=== PATIENT | female | born 1955 | race Caucasian/White ===

== ENCOUNTER → 2019-12-02 14:54 | Outpatient (BNVA) | payer MEDICARE, MEDICAID, SELFPAY | PROVIDERS: Family Provider Nurse Practitioner Family; PCP Family Medicine; Visit Provider Nurse Practitioner Family | DX: M79.7 Fibromyalgia (principal); R53.83 Other fatigue | CPT/HCPCS: 82306; 82607 ==

== ENCOUNTER 2020-03-31 12:04 | Outpatient (CLI) | payer MEDICARE, MEDICAID, SELFPAY ==
[2020-03-31 12:57] LABS: Basophils # 0.1 10^3/uL (0.0-0.1); Basophils % 0.8 %; Eosinophils # 0.2 10^3/uL (0.0-0.8); Eosinophils % 2.3 %; Hemoglobin 12.6 g/dL (11.5-15.3); Lymphocytes % 25.7 %; Mean Corpuscular HGB Conc 31.5 g/dL (30.0-36.0); Mean Corpuscular Volume 88.9 fL (81-99); Mean Platelet Volume 10.3 fL (7.4-10.4); Monocytes # 0.5 10^3/uL (0.2-0.9); Monocytes % 6.8 %; Neutrophils # 4.9 10^3/uL (1.8-7.7); Neutrophils % 64.1 %; Nucleated Red Blood Cells % 0 %; Platelet Count 445 10^3/cmm (130-400); Red Cell Distribution Width 15.2 % (12.1-15.1); White Blood Count 7.7 10^3/uL (4.0-10.0)
[2020-03-31 13:19] LABS: Hepatitis C Virus Antibody Non-Reactive (Nonreactive)
[2020-03-31 13:24] LABS: Alanine Aminotransferase 26 U/L (0-33); Albumin Level 4.7 g/dL (3.5-5.2); Alkaline Phosphatase 98 IU/L (35-105); Aspartate Amino Transferase 30 U/L (0-32); Blood Urea Nitrogen 22 mg/dL (8-23); Calcium 9.6 mg/dL (8.5-10.5); Carbon Dioxide 26 mmol/L (22-29); Chloride 101 mmol/L (98-107); Chol HDL Ratio 3.19 mg/dL (0.0-4.40); Cholesterol 166 mg/dL (0-200); Globulin 2.4 g/dL (1.3-4.6); Glomerular Filtration Rate 45.4 mL/min (90-130); Glucose 109 mg/dL (65-115); HDL Cholesterol 52 mg/dL (60-100); LDL Cholesterol Calculated 75 mg/dL (50-129); LDL HDL Ratio 1.44 RATIO (0.00-3.22); Osmolality Calculated 289 mOsm/kg (285-295); Sodium 141 mmol/L (136-145); Thyroid Stimulating Hormone 2.63 uIU/mL (0.27-4.20); Total Bilirubin 0.5 mg/dL (0.15-1.2); Total Protein 7.1 g/dL (6.6-8.7); Triglycerides 193 mg/dL (0-150)
[2020-03-31 13:29] LABS: Hepatitis B Core AB, Total Non-Reactive (Nonreactive); Hepatitis B Surface Antigen Non-Reactive (Nonreactive)
[2020-03-31 13:40] LABS: Glomerular Filtration Rate 41.4 mL/min (90-130)
[2020-03-31 13:55] LABS: Erythrocyte Sedimentation Rate 10 mm/hr (0-15)
[2020-03-31 14:37] LABS: C Reactive Protein 1.3 mg/L (0.0-4.9)
[2020-04-02 15:34] LABS: Quantiferon Mitogen 1.01 IU/mL; Quantiferon Nil 0.03 IU/mL; Quantiferon Plus TB1 0.03 IU/mL; Quantiferon TB Gold NEGATIVE (NEGATIVE)
== END 2020-03-31 12:05 | disposition home or self-care (01) ==
LOC: LAB 12:14
PROVIDERS: PCP Nurse Practitioner Family; Visit Provider Internal Medicine Rheumatology
DX: Z79.899 Other long term (current) drug therapy (principal); M19.90 Unspecified osteoarthritis, unspecified site
CPT/HCPCS: 36415; 80053; 80061; 82248; 82565; 84443; 85025; 85651; 86140; 86480; 86704; 86803; 87340

== ENCOUNTER 2020-04-06 13:06 | Outpatient (CLI) | payer MEDICARE, MEDICAID, SELFPAY ==
--- NOTE | 2020-04-06 | MR_ITS ---
WS: [id number] MRI LEFT KNEE NONCONTRAST TECHNIQUE: Axial PD, coronal PD fat sat, coronal PD, sagittal PD, and sagittal PD fat-sat images obta ined. CLINICAL INFORMATION: LT KNEE PAIN COMPARISON: None. FINDINGS: Distal quadriceps and patella tendons are intact. Small suprapatellar effusion. Anterior and posterio r cruciate ligaments are intact. Lateral meniscus is normal. Chronic appearing intrasubstance signal abnormality involving the posterior horn medial meniscus. Horizontal tear involving the posterior hor n medial meniscus. Moderate chondromalacia patella. No subchondral edema. Mild edema in the popliteal fossa. Small amoun t of fluid along the popliteal fossa. Fluid extends along the medial head of the gastrocnemius and se mimembranosus/semitendinosus. Mild to moderate chondromalacia involving the medial and lateral joint compartments. No subchondral e gennaro. MR/MR knee LT wo con* [id number] IMPRESSION: 1. Anterior and posterior cruciate ligaments are intact. 2. Small horizontal tear involving the posterior horn medial meniscus. 3. Moderate chondromalacia involving the medial and lateral joint compartments . 4. Small suprapatellar effusion. 5. Moderate chondromalacia patella. 6. Small amount of fluid and edema in the popliteal fossa along the medial hea d of the gastrocnemius and semimembranosus/semitendinosus.
== END 2020-04-06 13:07 | disposition home or self-care (01) ==
LOC: RADSHAW 13:14
PROVIDERS: PCP Nurse Practitioner Family; Visit Provider Nurse Practitioner Family
DX: S83.242A Other tear of medial meniscus, current injury, left knee, initial encounter (principal); X58.XXXA Exposure to other specified factors, initial encounter; M22.42 Chondromalacia patellae, left knee; M25.462 Effusion, left knee
CPT/HCPCS: 73721

== ENCOUNTER → 2020-04-07 15:32 | Outpatient (BNVA) | payer MEDICARE, MEDICAID, SELFPAY | PROVIDERS: PCP Nurse Practitioner Family; Visit Provider Internal Medicine Rheumatology | DX: M06.09 Rheumatoid arthritis without rheumatoid factor, multiple sites (principal); M79.7 Fibromyalgia; S83.207D Unspecified tear of unspecified meniscus, current injury, left knee, subsequent encounter; J44.9 Chronic obstructive pulmonary disease, unspecified; M47.26 Other spondylosis with radiculopathy, lumbar region; M48.02 Spinal stenosis, cervical region; Z79.899 Other long term (current) drug therapy; X58.XXXD Exposure to other specified factors, subsequent encounter | CPT/HCPCS: 99214 ==

== ENCOUNTER 2020-04-21 12:30 | Outpatient (CLI) | payer MEDICARE, MEDICAID, SELFPAY ==
[2020-04-21 13:59] LABS: Glomerular Filtration Rate 50.2 mL/min (90-130); Magnesium 2.1 mg/dL (1.7-2.3); Potassium 3.3 mmol/L (3.5-5.1)
== END 2020-04-21 12:31 | disposition home or self-care (01) ==
LOC: LAB 12:33
PROVIDERS: PCP Nurse Practitioner Family; Visit Provider Internal Medicine Rheumatology
DX: Z86.39 Personal history of other endocrine, nutritional and metabolic disease (principal); M47.819 Spondylosis without myelopathy or radiculopathy, site unspecified; M23.304 Other meniscus derangements, unspecified medial meniscus, left knee; M25.562 Pain in left knee
CPT/HCPCS: 36415; 73560; 73565; 82565; 83735; 84132

== ENCOUNTER → 2020-07-29 10:32 | Outpatient (BNVA) | payer MEDICARE, MEDICAID, SELFPAY | PROVIDERS: PCP Nurse Practitioner Family; Visit Provider Internal Medicine Rheumatology | DX: M06.041 Rheumatoid arthritis without rheumatoid factor, right hand (principal); M06.042 Rheumatoid arthritis without rheumatoid factor, left hand; M23.304 Other meniscus derangements, unspecified medial meniscus, left knee; B02.9 Zoster without complications; M79.7 Fibromyalgia; N18.9 Chronic kidney disease, unspecified; Z79.899 Other long term (current) drug therapy; J44.9 Chronic obstructive pulmonary disease, unspecified; M47.26 Other spondylosis with radiculopathy, lumbar region; M48.02 Spinal stenosis, cervical region | CPT/HCPCS: 36415; 80076; 82565; 85025; 85651; 86140; 99214 ==

== ENCOUNTER 2020-07-29 11:41 | Outpatient (CLI) | payer MEDICARE, MEDICAID, SELFPAY ==
[2020-07-29 12:45] LABS: Basophils # 0.1 10^3/uL (0.0-0.1); Basophils % 0.9 %; Eosinophils # 0.4 10^3/uL (0.0-0.8); Hemoglobin 12.8 g/dL (11.5-15.3); Lymphocytes # 1.9 10^3/uL (0.8-4.8); Lymphocytes % 20.7 %; Mean Corpuscular HGB Conc 31.2 g/dL (30.0-36.0); Mean Corpuscular Hemoglobin 27.6 pg (28.0-34.0); Mean Corpuscular Volume 88.6 fL (81-99); Mean Platelet Volume 10.8 fL (7.4-10.4); Monocytes # 0.7 10^3/uL (0.2-0.9); Neutrophils # 6.14 10^3/uL (1.8-7.7); Neutrophils % 66.2 %; Nucleated Red Blood Cells % 0 %; Platelet Count 475 10^3/cmm (130-400); Red Blood Count 4.63 10^6/uL (4.1-5.3); Red Cell Distribution Width 15.8 % (12.1-15.1); White Blood Count 9.3 10^3/uL (4.0-10.0)
[2020-07-29 13:04] LABS: Alanine Aminotransferase 42 U/L (0-33); Albumin Level 4.5 g/dL (3.5-5.2); Alkaline Phosphatase 99 IU/L (35-105); Aspartate Amino Transferase 43 U/L (0-32); Globulin 2.6 g/dL (1.3-4.6); Total Bilirubin 0.5 mg/dL (0.15-1.2); Total Protein 7.1 g/dL (6.6-8.7)
[2020-07-29 13:45] LABS: Erythrocyte Sedimentation Rate 7 mm/hr (0-15)
[2020-07-29 14:07] LABS: C Reactive Protein 0.7 mg/L (0.0-4.9)
== END 2020-07-29 11:42 | disposition home or self-care (01) ==
LOC: LAB 11:47
PROVIDERS: PCP Nurse Practitioner Family; Visit Provider Internal Medicine Rheumatology
DX: Z79.899 Other long term (current) drug therapy (principal)
CPT/HCPCS: 36415; 80076; 82565; 85025; 85651; 86140

== ENCOUNTER → 2020-11-30 10:49 | Outpatient (BNVA) | payer MEDICARE, MEDICAID, SELFPAY | PROVIDERS: PCP Nurse Practitioner Family; Visit Provider Internal Medicine Rheumatology | DX: M06.041 Rheumatoid arthritis without rheumatoid factor, right hand (principal); M06.042 Rheumatoid arthritis without rheumatoid factor, left hand; M79.7 Fibromyalgia; J44.9 Chronic obstructive pulmonary disease, unspecified; N18.9 Chronic kidney disease, unspecified; B02.9 Zoster without complications; M48.02 Spinal stenosis, cervical region; M47.26 Other spondylosis with radiculopathy, lumbar region; Z79.899 Other long term (current) drug therapy; Z98.890 Other specified postprocedural states | CPT/HCPCS: 99214 ==

== ENCOUNTER 2020-12-09 13:26 | Outpatient (CLI) | payer MEDICARE, MEDICAID, SELFPAY ==
--- NOTE | 2020-12-09 13:41 | MM_ITS ---
WS: [id number] BILATERAL SCREENING DIGITAL MAMMOGRAM WITH CAD HISTORY: SCREENING COMPARISON: 06/05/2014, 07/03/2015, 09/19/2019 and 08/06/2018 Bilateral CC and MLO views submitted. Computer aided detection analyzed. Breast composition: The breasts are heterogeneously dense, which may obscure small masses. No suspici ous masses, microcalcifications or architectural distortion. Ovoid nodule measuring 1 cm in the poste rior RIGHT breast has been present since 2013 but decreased in size since that exam. No suspicious ca [place]cifications. MM/[place] [id number] IMPRESSION: BI-RADS: 2-Benign FOLLOW UP: 1 Year Follow-up
== END 2020-12-09 13:27 | disposition home or self-care (01) ==
LOC: RADSHAW 13:31
PROVIDERS: PCP Nurse Practitioner Family; Visit Provider Nurse Practitioner Family
DX: Z12.31 Encounter for screening mammogram for malignant neoplasm of breast (principal)
CPT/HCPCS: 77067

== ENCOUNTER 2021-01-25 14:36 | Outpatient (CLI) | payer MEDICARE, MEDICAID, SELFPAY ==
--- NOTE | 2021-01-25 14:49 | XR_ITS ---
WS: [id number] DEXA (DUAL ENERGY X-RAY ABSORPTIOMETRY) Bone mineral density was performed using a [employer] machine. HISTORY: POST MENOPAUSAL COMPARISON: None available. Lumbar spine BMD (L1-L4): 1.194 g/cm2 T score: 0.1 Z score: 0.7 Total hip BMD: Left: 0.900 g/cm2. T score: -0.9 Z score: -0.4 Right: 0.863 g/cm2. T score: -1.2 Z score: -0.7 10 year probability of a major osteoporotic fracture is 10%. XR/XR DEXA axial skeleton* [id number] IMPRESSION: OSTEOPENIA based upon the WHO classification for females.
== END 2021-01-25 14:37 | disposition home or self-care (01) ==
PROVIDERS: PCP Nurse Practitioner Family; Visit Provider Nurse Practitioner Family
DX: Z78.0 Asymptomatic menopausal state (principal); M85.88 Other specified disorders of bone density and structure, other site
CPT/HCPCS: 77080

== ENCOUNTER → 2021-03-29 10:37 | Outpatient (BNVA) | payer MEDICARE, MEDICAID, SELFPAY | PROVIDERS: PCP Nurse Practitioner Family; Visit Provider Internal Medicine Rheumatology | DX: M06.041 Rheumatoid arthritis without rheumatoid factor, right hand (principal); M06.042 Rheumatoid arthritis without rheumatoid factor, left hand; Z79.899 Other long term (current) drug therapy; N18.9 Chronic kidney disease, unspecified; B02.9 Zoster without complications; M79.7 Fibromyalgia; J44.9 Chronic obstructive pulmonary disease, unspecified | CPT/HCPCS: 99214 ==

== ENCOUNTER 2021-06-02 13:37 | Outpatient (CLI) | payer MEDICARE, MEDICAID, SELFPAY ==
--- NOTE | 2021-06-02 13:54 | XR_ITS ---
WS: [id number] Left foot, 3 views, 06/02/2021 Clinical Data: PLANTER FASCITIS Comparison: Left foot, 06/14/2013. Findings: No fractures or dislocations are seen. No bone destruction or erosion is noted. The joint spaces and soft tissues are normal. There is a plantar spur and an Achilles spur. XR/XR foot LT min 3V* [id number] Impression: Negative left foot.
== END 2021-06-02 13:38 | disposition home or self-care (01) ==
LOC: RAD 13:44
PROVIDERS: PCP Nurse Practitioner Family; Visit Provider Nurse Practitioner Family
DX: M72.2 Plantar fascial fibromatosis (principal)
CPT/HCPCS: 73630

== ENCOUNTER → 2021-07-29 10:01 | Outpatient (BNVA) | payer MEDICARE, MEDICAID, SELFPAY | PROVIDERS: PCP Nurse Practitioner Family; Visit Provider Internal Medicine Rheumatology | DX: M06.041 Rheumatoid arthritis without rheumatoid factor, right hand (principal); M06.042 Rheumatoid arthritis without rheumatoid factor, left hand; Z79.899 Other long term (current) drug therapy; M47.819 Spondylosis without myelopathy or radiculopathy, site unspecified; N18.9 Chronic kidney disease, unspecified; B02.9 Zoster without complications; M79.7 Fibromyalgia; Z79.1 Long term (current) use of non-steroidal anti-inflammatories (NSAID) | CPT/HCPCS: 99214 ==

== ENCOUNTER 2021-12-17 12:30 | Outpatient (CLI) | payer MEDICARE, MEDICAID, SELFPAY ==
--- NOTE | 2021-12-17 12:42 | XRR_ITS ---
PROCEDURE INFORMATION: Exam: XR Left Knee Exam date and time: 12/17/2021 12:42 PM Age: 66 years old Clinical indication: Blunt trauma involving the lower leg with pain. Fall two weeks ago. Pain in left leg below the knee since injury. Prior left knee surgery. TECHNIQUE: Imaging protocol: XR Left knee. Views: 3 views. COMPARISON: CR XR knees AP WB w LT lmt ORTH 04/21/2020 2:00 PM FINDINGS: Bones/joints: Mildly displaced fracture involving the lateral tibial spine. Nondisplaced fracture involving the proximal fibular diaphysis. Cwda-zl-ezfraorf osteoarthritis involving the medial and patellofemoral compartments. No gross knee joint effusion. No chondrocalcinosis is seen. Soft tissues: The extensor mechanism is overall intact. Mild lateral soft tissue swelling involving the lower leg. XR/XR knee LT 3V* [id number] IMPRESSION: 1. Mildly displaced fracture involving the lateral tibial spine. 2. Nondisplaced fracture involving the proximal fibular diaphysis. 3. Teav-wq-aqfyyxvo osteoarthritis. 4. Mild lateral soft tissue swelling involving the lower leg.
--- NOTE | 2021-12-17 12:42 | XRR_ITS ---
PROCEDURE INFORMATION: Exam: XR Left Tibia and Fibula Exam date and time: 12/17/2021 12:42 PM Age: 66 years old Clinical indication: Blunt trauma involving the lower leg with pain. Fall two weeks ago. Pain in left leg below the knee since injury. Prior left knee surgery. TECHNIQUE: Imaging protocol: XR Left tibia and fibula. Views: 2 views. COMPARISON: CR XR knees AP WB w LT lmt ORTH 04/21/2020 2:00 PM FINDINGS: Bones/joints: There is a nondisplaced fracture through the proximal diaphysis of the fibula. Plantar calcaneal spur. Probable calcific tendinosis involving the distal Achilles tendon. There is a mildly displaced fracture involving the lateral tibial spine. Soft tissues: Mild lateral soft tissue swelling involving the proximal leg. XR/XR tibia fibula LT 2V [id number] IMPRESSION: 1. Nondisplaced fracture through the proximal diaphysis of the fibula with associated soft tissue swelling. 2. Probable calcific tendinosis involving the distal Achilles tendon. 3. Plantar calcaneal spur. 4. Mildly displaced fracture involving the lateral tibial spine. Please see dedicated radiographs of the knee for additional findings.
== END 2021-12-17 12:31 | disposition home or self-care (01) ==
LOC: RAD 12:35
PROVIDERS: PCP Nurse Practitioner Family; Visit Provider Nurse Practitioner Family
DX: S82.832A Other fracture of upper and lower end of left fibula, initial encounter for closed fracture (principal); S82.112A Displaced fracture of left tibial spine, initial encounter for closed fracture; M17.12 Unilateral primary osteoarthritis, left knee; W19.XXXA Unspecified fall, initial encounter
CPT/HCPCS: 73562; 73590

== ENCOUNTER → 2021-12-27 13:54 | Outpatient (BNVA) | payer MEDICARE, MEDICAID, SELFPAY | PROVIDERS: PCP Nurse Practitioner Family; Visit Provider Internal Medicine Rheumatology | DX: M06.041 Rheumatoid arthritis without rheumatoid factor, right hand (principal); M06.042 Rheumatoid arthritis without rheumatoid factor, left hand; Z71.89 Other specified counseling; Z79.899 Other long term (current) drug therapy; K04.7 Periapical abscess without sinus; J42 Unspecified chronic bronchitis; N18.9 Chronic kidney disease, unspecified; Z79.1 Long term (current) use of non-steroidal anti-inflammatories (NSAID) | CPT/HCPCS: 99214 ==

== ENCOUNTER 2022-01-18 12:17 | Outpatient (CLI) | payer MEDICARE, MEDICAID, SELFPAY ==
--- NOTE | 2022-01-18 12:56 | MM_ITS ---
WS: [id number] BILATERAL SCREENING DIGITAL MAMMOGRAM WITH CAD HISTORY: SCREENING COMPARISON: 12/09/2020, 09/19/2019 and 07/25/2017 Bilateral CC and MLO views submitted. Computer aided detection analyzed. Breast composition: The breasts are heterogeneously dense, which may obscure small masses. No suspici ous masses, microcalcifications or architectural distortion. Long-term stability the 10 mm mass which is partially obscured in the posterior RIGHT breast. Seen best on the lateral projection. No suspici ous masses or calcifications otherwise. No distortion. MM/[place] [id number] IMPRESSION: BI-RADS: 2-Benign FOLLOW UP: 1 Year Follow-up
== END 2022-01-18 12:18 | disposition home or self-care (01) ==
PROVIDERS: PCP Nurse Practitioner Family; Visit Provider Nurse Practitioner Family
DX: Z12.31 Encounter for screening mammogram for malignant neoplasm of breast (principal)
CPT/HCPCS: 77067

== ENCOUNTER → 2022-01-19 10:18 | Outpatient (BNVA) | payer MEDICARE, MEDICAID, SELFPAY | PROVIDERS: PCP Nurse Practitioner Family; Visit Provider Orthopaedic Surgery | DX: S82.112D Displaced fracture of left tibial spine, subsequent encounter for closed fracture with routine healing (principal); S82.402D Unspecified fracture of shaft of left fibula, subsequent encounter for closed fracture with routine healing; X58.XXXD Exposure to other specified factors, subsequent encounter; M06.9 Rheumatoid arthritis, unspecified | CPT/HCPCS: 73590 ==

== ENCOUNTER → 2022-04-26 12:19 | Outpatient (BNVA) | payer MEDICARE, MEDICAID, SELFPAY | PROVIDERS: PCP Nurse Practitioner Family; Visit Provider Internal Medicine Rheumatology | DX: M06.041 Rheumatoid arthritis without rheumatoid factor, right hand (principal); M06.042 Rheumatoid arthritis without rheumatoid factor, left hand; M48.02 Spinal stenosis, cervical region; M47.26 Other spondylosis with radiculopathy, lumbar region; Z79.899 Other long term (current) drug therapy; J44.9 Chronic obstructive pulmonary disease, unspecified; N18.9 Chronic kidney disease, unspecified; F40.231 Fear of injections and transfusions; Z71.89 Other specified counseling | CPT/HCPCS: 80076; 82565; 85025; 86140; 99214 ==

== ENCOUNTER → 2022-08-23 13:33 | Outpatient (BNVA) | payer MEDICARE, MEDICAID, SELFPAY | PROVIDERS: PCP Nurse Practitioner Family; Visit Provider Internal Medicine Rheumatology | DX: M06.041 Rheumatoid arthritis without rheumatoid factor, right hand (principal); M06.042 Rheumatoid arthritis without rheumatoid factor, left hand; Z79.899 Other long term (current) drug therapy; Z71.89 Other specified counseling; J44.9 Chronic obstructive pulmonary disease, unspecified; Z98.890 Other specified postprocedural states; M48.02 Spinal stenosis, cervical region; M47.26 Other spondylosis with radiculopathy, lumbar region; N18.9 Chronic kidney disease, unspecified; Z86.19 Personal history of other infectious and parasitic diseases | CPT/HCPCS: 36415; 80076; 82565; 85025; 86140; 99214 ==

== ENCOUNTER → 2022-12-19 09:57 | Outpatient (BNVA) | payer MEDICARE, MEDICAID, SELFPAY | PROVIDERS: PCP Nurse Practitioner Family; Visit Provider Internal Medicine Rheumatology | DX: M06.041 Rheumatoid arthritis without rheumatoid factor, right hand (principal); M06.042 Rheumatoid arthritis without rheumatoid factor, left hand; Z71.89 Other specified counseling; M79.7 Fibromyalgia; J44.9 Chronic obstructive pulmonary disease, unspecified; Z98.890 Other specified postprocedural states; M48.02 Spinal stenosis, cervical region; M47.26 Other spondylosis with radiculopathy, lumbar region; N18.9 Chronic kidney disease, unspecified; Z86.19 Personal history of other infectious and parasitic diseases; Z79.899 Other long term (current) drug therapy | CPT/HCPCS: 99214 ==

== ENCOUNTER 2023-01-04 11:59 | Outpatient (CLI) | payer MEDICARE, MEDICAID, SELFPAY ==
[2023-01-04 12:57] LABS: Basophils # 0.1 10^3/uL (0.0-0.1); Eosinophils # 0.2 10^3/uL (0.0-0.8); Eosinophils % 2.9 %; Hematocrit 44.1 % (37.0-47.0); Hemoglobin 14.2 g/dL (11.5-15.3); Lymphocytes # 2.1 10^3/uL (0.8-4.8); Lymphocytes % 26.4 %; Mean Corpuscular HGB Conc 32.2 g/dL (30.0-36.0); Mean Corpuscular Hemoglobin 29.5 pg (28.0-34.0); Mean Corpuscular Volume 91.5 fl (81-99); Mean Platelet Volume 10.9 fL (7.4-10.4); Monocytes # 0.7 10^3/uL (0.2-0.9); Monocytes % 8.6 %; Neutrophils % 60.9 %; Nucleated Red Blood Cells % 0 %; Platelet Count 447 10^3/cmm (130-400); Red Blood Count 4.82 10^6/uL (4.1-5.3); Red Cell Distribution Width 13.9 % (12.1-15.1)
[2023-01-04 13:33] LABS: Alanine Aminotransferase 39 U/L (0-33); Albumin Level 4.4 g/dL (3.5-5.2); Alkaline Phosphatase 91 U/L (35-105); Anion Gap 12.5 (5-19); Aspartate Amino Transferase 37 U/L (0-32); Blood Urea Nitrogen 24 mg/dL (8-23); Carbon Dioxide 30 mmol/L (22-29); Chloride 106 mmol/L (98-107); Chol HDL Ratio 3.31 mg/dL (0.0-4.40); Cholesterol 162 mg/dL (0-200); Globulin 2.1 g/dL (1.3-4.6); Glomerular Filtration Rate 62.6 mL/min (90-130); Glucose 91 mg/dL (65-115); HDL Cholesterol 49 mg/dL (60-100); LDL Cholesterol Calculated 78 mg/dL (50-129); LDL HDL Ratio 1.59 RATIO (0.00-3.22); Osmolality Calculated 304 mOsm/kg (285-295); Potassium 3.5 mmol/L (3.5-5.1); Sodium 145 mmol/L (136-145); Thyroid Stimulating Hormone 1.27 uIU/mL (0.27-4.20); Total Bilirubin 0.5 mg/dL (0.15-1.2); Total Protein 6.5 g/dL (6.6-8.7); Triglycerides 175 mg/dL (0-150)
[2023-01-04 13:41] LABS: 25 Hydroxy Vitamin D 59 ng/mL (30-100); Alanine Aminotransferase 40 U/L (0-33); Albumin Level 4.4 g/dL (3.5-5.2); Alkaline Phosphatase 91 U/L (35-105); Aspartate Amino Transferase 35 U/L (0-32); Globulin 2.1 g/dL (1.3-4.6); Glomerular Filtration Rate 62.6 mL/min (90-130); Total Bilirubin 0.6 mg/dL (0.15-1.2); Total Protein 6.5 g/dL (6.6-8.7)
== END 2023-01-04 12:00 | disposition home or self-care (01) ==
PROVIDERS: PCP Nurse Practitioner Family; Referring Provider Nurse Practitioner Family; Visit Provider Internal Medicine Rheumatology
DX: E03.9 Hypothyroidism, unspecified (principal); E78.5 Hyperlipidemia, unspecified; R03.0 Elevated blood-pressure reading, without diagnosis of hypertension; Z79.899 Other long term (current) drug therapy; M06.041 Rheumatoid arthritis without rheumatoid factor, right hand; M06.042 Rheumatoid arthritis without rheumatoid factor, left hand; N18.9 Chronic kidney disease, unspecified
CPT/HCPCS: 36415; 80053; 80061; 80076; 82306; 82565; 84443; 85025

== ENCOUNTER 2023-01-25 14:39 | Outpatient (CLI) | payer MEDICARE, MEDICAID, SELFPAY ==
--- NOTE | 2023-01-25 14:57 | MM_ITS ---
WS: [id number] Bilateral screening 3D tomosynthesis digital mammogram, 01/25/2023 Clinical Data: SCREENING Comparison: 01/18/2022, 12/09/2020, 09/19/2019, 08/22/2018, 08/06/2018, 07/25/2017, 07/11/2016, 07/03/2015, , 05/08/2013, 05/02/2012, 03/28/2011, 03/14/2011, 02/03/2010, 12/23/2008, 11/22/2007, 04/30/2007. Findings: The breast parenchymal pattern shows heterogeneous density. No spiculated masses or clustered calcifi cations are seen. There are no secondary signs of carcinoma. There are lymph nodes in both axilla. MM/[place] [id number] Impression: 1. Negative bilateral mammogram unchanged. 2. Recommend annual screening mammograms. BIRADS: 1-Negative FOLLOW UP: 1 Year Follow-up The CAD fish checker was used.
== END 2023-01-25 14:40 | disposition home or self-care (01) ==
PROVIDERS: PCP Nurse Practitioner Family; Visit Provider Nurse Practitioner Family
DX: Z12.31 Encounter for screening mammogram for malignant neoplasm of breast (principal)
CPT/HCPCS: 77063; 77067

== ENCOUNTER 2023-09-14 12:10 | Outpatient (CLI) | payer MEDICARE, MEDICAID, SELFPAY ==
--- NOTE | 2023-09-14 12:28 | XR_ITS ---
WS: [id number] Exam: XR hip RT 2-3V wo/w pel* [id number] Date/Time of Exam: 09/14/2023 12:28 PM Reason For Exam: Left hip pain Comparison 08/28/2012. Findings: No fractures or bone anomalies are noted. No unusual soft tissue masses or calcifications are seen. The bony elements of the hip are in adequate alignment. IMPRESSION: Negative RIGHT hip. Tonnis classification: 0
--- NOTE | 2023-09-14 12:28 | XR_ITS ---
WS: [id number] Exam: XR lumbar spine 2-3V* [id number] Date/Time of Exam: 09/14/2023 12:28 PM Reason For Exam: Lower back pain Comparison 03/20/2015. No fracture or dislocation. Disc space degeneration at L4-5 and L5-S1. Slight spondylosis. Mild facet DJD at all levels. No significant scoliosis. Aortic atherosclerotic disease. IMPRESSION: 1. No fracture or malalignment. 2. Degenerative disc narrowing at L4-5 and L5-S1. Facet DJD at all levels.
== END 2023-09-14 12:11 | disposition home or self-care (01) ==
PROVIDERS: PCP Nurse Practitioner Family; Visit Provider Anesthesiology Pain Medicine
DX: M54.51 Vertebrogenic low back pain (principal); M25.551 Pain in right hip; M51.37 Other intervertebral disc degeneration, lumbosacral region; M47.817 Spondylosis without myelopathy or radiculopathy, lumbosacral region
CPT/HCPCS: 72100; 73502

== ENCOUNTER → 2024-02-22 14:02 | Outpatient (BNVA) | payer MEDICARE, MEDICAID, SELFPAY | PROVIDERS: PCP Nurse Practitioner Family; Visit Provider Orthopaedic Surgery | DX: M46.46 Discitis, unspecified, lumbar region (principal) | CPT/HCPCS: 72110; 99204 ==

== ENCOUNTER 2024-03-07 13:37 | Outpatient (CLI) | payer MEDICARE, MEDICAID, SELFPAY ==
--- NOTE | 2024-03-07 14:30 | MR_ITS ---
WS: [id number] MRI LUMBAR SPINE NONCONTRAST HISTORY: Back pain COMPARISON: 03/20/2015 TECHNIQUE: Sagittal and axial multisequence imaging is submitted. Very mild straightening of the normal lumbar spine. Severe disc space narrowing and desiccation at L4-5 is new. Edema within the disc space extending int o the adjacent vertebral bodies. Due to the configuration these are probably Schmorl's nodes and may be acute. There is very slight anterior wedging of the L4 and L5 vertebral bodies. No marrow edema in the remaining lumbar vertebral bodies. Conus terminates normally at L1-2 disc level. L1-L2: Normal. L2-L3: Mild annular disc bulging with mild facet arthritis. Mild encroachment upon the subarticular r ecesses. No high-grade stenosis. L3-L4: Mild annular disc bulging with a shallow LEFT foraminal disc protrusion. Moderate ligamentum f lavum and facet arthritis. There is mild central stenosis with encroachment upon the subarticular rec esses. Slightly greater encroachment upon the traversing RIGHT L4 nerve root. Progression of degenera tive changes and stenosis since 2014. L4-L5: Marked annular disc bulging with disc osteophyte centrally extending into the foramina. Near c omplete effacement of central CSF. Severe central, bilateral subarticular recess and foraminal stenos is. Central and foraminal disc protrusions. There is a disc protrusion that extends cephalad from the disc space. Small facet joint cyst on the RIGHT. L5-S1: Mild annular disc bulging asymmetric to the LEFT. Broad-based LEFT foraminal disc protrusion. There is disc encroaching upon the subarticular recesses. Mild bilateral subarticular recess and fora cyrus stenosis. Slightly greater stenosis on the RIGHT. IMPRESSION: 1. Severe degenerative disc disease at L4-5. Schmorl's nodes extend into the vertebral bodies with e gennaro. Additional edema within the disc suggesting this is an acute process. 2. L4-5: Severe central, bilateral subarticular recess and foraminal stenosis. There is marked disc bulging with central and bilateral foraminal disc protrusions and osteophytosis. 3. L5-S1: Asymmetric disc bulging to the LEFT. Broad-based LEFT foraminal disc protrusion. Mild bila teral subarticular recess and foraminal stenosis. 4. L3-4: Mild central and bilateral subarticular recess stenosis. Slightly greater encroachment upon the traversing RIGHT L4 nerve root.
== END 2024-03-07 13:38 | disposition home or self-care (01) ==
LOC: RAD 13:37
PROVIDERS: PCP Nurse Practitioner Family; Visit Provider Orthopaedic Surgery
DX: M54.50 Low back pain, unspecified (principal); M51.36 Other intervertebral disc degeneration, lumbar region; M48.061 Spinal stenosis, lumbar region without neurogenic claudication; M51.37 Other intervertebral disc degeneration, lumbosacral region
CPT/HCPCS: 72148

== ENCOUNTER → 2024-03-14 12:51 | Outpatient (BNVA) | payer MEDICARE, MEDICAID, SELFPAY | PROVIDERS: PCP Nurse Practitioner Family; Visit Provider Orthopaedic Surgery | DX: M54.9 Dorsalgia, unspecified (principal); M48.062 Spinal stenosis, lumbar region with neurogenic claudication | CPT/HCPCS: 36415; 80053; 81003; 85025; 99214 ==

== ENCOUNTER → 2024-03-22 10:39 | Outpatient (BNVA) | payer OTHER, MEDICAID, SELFPAY | PROVIDERS: PCP Nurse Practitioner Family; Visit Provider Family Medicine | DX: Z01.818 Encounter for other preprocedural examination (principal); I51.7 Cardiomegaly | CPT/HCPCS: 93005 ==

== ENCOUNTER → 2024-04-25 10:51 | Outpatient (BNVA) | payer OTHER, MEDICAID, SELFPAY | PROVIDERS: PCP Nurse Practitioner Family; Visit Provider Orthopaedic Surgery | DX: M46.46 Discitis, unspecified, lumbar region (principal) | CPT/HCPCS: 99214 ==

== ENCOUNTER 2024-05-01 12:56 | Outpatient (CLI) | payer OTHER, MEDICAID, SELFPAY ==
--- NOTE | 2024-05-01 13:45 | MR_ITS ---
WS: [id number] MRI LUMBAR SPINE NONCONTRAST HISTORY: Back Pain COMPARISON: None available 03/07/2024. TECHNIQUE: Sagittal and axial multisequence imaging is submitted. Patient refused IV contrast. Mild straightening of the normal lumbar lordosis. Severe degenerative disc disease at L4-5 and moderate at L1 5 S1. There is marrow edema in the adjace nt endplates of L4 and L5. There is also small amount of fluid along the disc space of L4-5. Similar changes on the study of 03/07/2024. Remaining disc spaces are normal. Conus terminates normally at L1-2 disc level. L1-L2: Mild disc bulging. No stenosis. L2-L3: Mild annular disc bulging. There is a shallow RIGHT paracentral disc protrusion which does maki ear slightly more prominent than on the prior study. Mild central and bilateral subarticular recess s tenosis. L3-L4: Mild annular disc bulging with ligamentum flavum and facet arthritis. There is mild encroachme nt upon the central canal and subarticular recesses. Slightly greater encroachment upon the RIGHT tra versing L4 nerve root. Similar to the prior study. L4-L5: Diffuse annular disc bulging with central and foraminal disc protrusions. Mild osteophytic rid ging and marked facet arthritis. There is severe encroachment upon the traversing L5 nerve roots. Mod erate to severe foraminal stenosis. L5-S1: Mild asymmetric disc bulging to the LEFT. Disc contacts the S1 nerve roots bilaterally. Mild s ubarticular recess and foraminal stenosis. Paravertebral soft tissues are normal. MR/MR lumbar spine wo con* [id number] IMPRESSION: 1. Severe degenerative disc disease at L4-5 with marrow edema in the adjacent vertebral bodies. Small amount of fluid in the disc spaces. 2. Please note patient refused IV contrast but this lumbar MRI exam. 3. L4-5: Severe central, bilateral subarticular recess and foraminal stenosis. 4. L5-S1: Broad-based LEFT foraminal disc protrusion. Mild bilateral subarticu lar recess and foraminal stenosis. 5. L3-4: Mild central and bilateral subarticular recess stenosis. 6. L2-3: Shallow RIGHT paracentral disc protrusion appears slightly greater th an on the prior examination. No progression of stenosis. Mild central and subar ticular recess stenosis.
== END 2024-05-01 12:57 | disposition home or self-care (01) ==
LOC: RAD 12:56
PROVIDERS: PCP Nurse Practitioner Family; Visit Provider Orthopaedic Surgery
DX: M51.36 Other intervertebral disc degeneration, lumbar region (principal); M51.26 Other intervertebral disc displacement, lumbar region; M48.061 Spinal stenosis, lumbar region without neurogenic claudication; M47.816 Spondylosis without myelopathy or radiculopathy, lumbar region; M25.78 Osteophyte, vertebrae; M51.37 Other intervertebral disc degeneration, lumbosacral region; M48.07 Spinal stenosis, lumbosacral region
CPT/HCPCS: 72148

== ENCOUNTER → 2024-05-14 13:52 | Outpatient (BNVA) | payer OTHER, MEDICAID, SELFPAY | PROVIDERS: PCP Nurse Practitioner Family; Visit Provider Orthopaedic Surgery | DX: M48.062 Spinal stenosis, lumbar region with neurogenic claudication (principal) | CPT/HCPCS: 36415; 80053; 81003; 85025; 99214 ==

== ENCOUNTER → 2024-05-28 11:56 | Outpatient (BNVA) | payer OTHER, MEDICAID, SELFPAY | PROVIDERS: PCP Nurse Practitioner Family; Visit Provider Nurse Practitioner Family | DX: G47.00 Insomnia, unspecified (principal); G47.10 Hypersomnia, unspecified; E55.9 Vitamin D deficiency, unspecified; M79.7 Fibromyalgia; R73.9 Hyperglycemia, unspecified; E03.9 Hypothyroidism, unspecified; E78.5 Hyperlipidemia, unspecified; J40 Bronchitis, not specified as acute or chronic; Z79.899 Other long term (current) drug therapy | CPT/HCPCS: 80061; 82306; 82607; 83036; 84443 ==

== ENCOUNTER → 2024-06-04 13:29 | Outpatient (CLI) | payer OTHER, MEDICAID, SELFPAY ==
--- NOTE | 2024-06-04 13:40 | MM_ITS ---
WS: [id number] BILATERAL 3D TOMOSYNTHESIS DIGITAL SCREENING MAMMOGRAPHY WITH CAD CLINICAL INFORMATION: SCREENING HISTORY: Screening mammogram. No current complaints. COMPARISON: 2022 TECHNIQUE: Bilateral CC and MLO views. FINDINGS: The breasts are composed of heterogeneous fibroglandular density tissue, which can limit the detectio n of small underlying mass lesions. No suspicious mass, asymmetry, calcifications, or architectural d istortion. No evidence of malignancy. Few incidental punctate calcifications. MM/[place] [id number] IMPRESSION: BI-RADS: 2-Benign FOLLOW UP: 1 Year Follow-up Recommend return to annual screening mammography.
== END | disposition home or self-care (01) ==
LOC: MOBLMAM 13:34
PROVIDERS: PCP Nurse Practitioner Family; Visit Provider Nurse Practitioner Family
DX: Z12.31 Encounter for screening mammogram for malignant neoplasm of breast (principal); R92.333 Mammographic heterogeneous density, bilateral breasts; R92.1 Mammographic calcification found on diagnostic imaging of breast
CPT/HCPCS: 77063; 77067

== ENCOUNTER 2024-06-28 06:55 | Day surgery (SDC) | payer MEDICARE, MEDICAID, SELFPAY ==
[2024-06-28] VITALS (10 sets, daily range): BP systolic 147–176; BP diastolic 82–94; PULSE 86–99; RESP 10–24; TEMP 36.1–36.6; O2SAT 90–98; BMI 25.4
--- NOTE | 2024-06-28 | XR_ITS ---
WS: [id number] INTRAOPERATIVE TECHNIQUE: 2 Spot fluoroscopic images for intraoperative purposes. FLUOROSCOPY TIME: 3 seconds CLINICAL INFORMATION: LIZZETTE PICS FINDINGS: Localization marker present over the dorsal RIGHT L4-5 interspace XR/XR lumbar spine 1V [id number] IMPRESSION: Images obtained for intraoperative purposes.
[2024-06-28] MEDS: sodium chloride 0.9% 1,000 ML 30 ML IV (07:36)
--- NOTE | 2024-06-28 09:17 | W.PM.OPSUD ---
Surgery/Procedure H&P Update DATE OF PROCEDURE: June 28, 2024 DATE H&P PERFORMED: 06/27/24 H&P UPDATE INFORMATION: I have reviewed H&P completed within last 30 days, I have examined patient prior to procedure and No changes to prior documentation PREOP DIAGNOSIS: Lumbar stenosis with neurogenic claudication; discitis PLANNED PROCEDURE: Operation Date: 06/28/24 08:40 Proposed Procedures p Lumbar Spine Decompression Lumbar Decompression(Not Applicable) - Adiel Lion DO
--- NOTE | 2024-06-28 09:17 | ANES.PREANE2 ---
Pre-Anesthetic Assessment Height/Weight: Height 1.78 m Weight 80.286 kg Temp Pulse Resp BP Pulse Ox O2 Del Method 97.5 F L 98 18 167/94 98 Room Air 06/28/24 07:23 06/28/24 07:23 06/28/24 07:23 06/28/24 07:23 06/28/24 07:23 06/28/24 07:23 Preop Diagnosis: Lumbar stenosis with neurogenic claudication; discitis Operation Date: 06/28/24 08:40 Proposed Procedures p Lumbar Spine Decompression Lumbar Decompression(Not Applicable) - Adiel Lion, DO Familial anesthetic complications: None Was Beta Blair taken within 24 hours: N/A Was Clonidine taken within 24 hours: N/A Last intake: Intake Last Liquid Date 06/28/24 Last Liquid Time 06:00 Last Solid Date 06/27/24 Last Solid Time 14:00 Social No alcohol and No tobacco Exam alert, oriented x 3, clear to auscultation bilaterally and regular rate & rhythm Airway Mallampati: Class II Dentition: other (missing) Pulmonary Chronic Obstructive Pulmonary Disease and Sleep Apnea Chronic Renal Insufficiency GI Gastroesophageal Reflux Disease Metabolic Hyperlipidemia and Thyroid Disease [facility] [place] Fibromyalgia Anesthetic Plan ASA status: 3 Anesthesia: General Risk of > 500 ml blood loss (7ml/kg in children): No Medications/Allergies Home Medications Medication Instructions Recorded Confirmed Last Taken Type fluticasone propionate 220 2 puff inhalation BID 12/02/19 06/27/24 06/20/24 History mcg/actuation HFA aerosol inhaler (Flovent HFA) hydrocodone 10 mg-acetaminophen 1 tab PO Q6H PRN Pain 07/29/20 06/27/24 06/26/24 History 325 mg tablet cholecalciferol (vitamin D3) 250 500 mcg PO DAILY 03/29/21 06/27/24 06/22/24 History mcg (10,000 unit) capsule gabapentin 400 mg capsule 400 mg PO TID 03/29/21 06/27/24 06/28/24 History multivitamin-folic acid 400 tab PO 03/29/21 06/27/24 06/22/24 History mcg-biotin 2,000 mcg tablet (Emxx-Rpdi-Wpdsx (cziyznnt-wbnti-ocykmz)) vitamin E mixed 1,000 unit capsule 1,000 unit PO DAILY 03/29/21 06/27/24 06/22/24 History albuterol sulfate 2.5 mg/0.5 mL 5 mg inhalation Q6H 01/19/22 06/27/24 06/26/24 History solution for nebulization aspirin 81 mg tablet,delayed 81 mg PO DAILY 01/19/22 06/27/24 06/22/24 History release (Adult Low Dose Aspirin) folic acid 1 mg tablet 3 mg (3 x 1 mg) .Route DAILY #90 04/26/22 06/27/24 06/22/24 Rx tabs diclofenac sodium 1 % topical gel See Rx Instructions .Route 07/25/23 06/27/24 06/25/24 Rx .COMPLEX #200 grams buspirone 10 mg tablet 15 mg PO BID 04/29/24 06/27/24 06/27/24 History lidocaine-prilocaine 2.5 %-2.5 % 1 applic topical ONCE PRN pain #30 04/29/24 06/27/24 06/26/24 Rx topical cream grams prednisone 5 mg tablet,delayed 5 mg PO DAILY 04/29/24 06/27/24 Unknown History release sumatriptan succinate 100 mg tablet 100 mg PO Q2H PRN Migraine Headache 04/29/24 06/27/24 Unknown History diclofenac sodium 75 mg 75 mg PO BID #180 tabs 05/28/24 06/27/24 06/26/24 Rx tablet,delayed release escitalopram oxalate 10 mg tablet 10 mg PO DAILY #90 tabs 05/28/24 06/27/24 06/27/24 Rx levothyroxine 125 mcg tablet 125 mcg PO DAILY #90 tabs 05/28/24 06/27/24 06/28/24 Rx penciclovir 1 % topical cream 1 applic topical Q2H 4 days #5 05/28/24 06/27/24 06/26/24 Rx (Denavir) grams rosuvastatin 40 mg tablet (Crestor) 40 mg PO DAILY #90 tabs 05/28/24 06/27/24 06/26/24 Rx pantoprazole 40 mg tablet,delayed 40 mg PO BID #180 tabs 06/14/24 06/27/24 06/27/24 Rx release (Protonix) triamcinolone acetonide 55 mcg 2 spray intranasal DAILY #16.9 mL 06/14/24 06/27/24 06/27/24 Rx nasal spray aerosol (Nasacort) temazepam 22.5 mg capsule 22.5 mg PO QPM 06/27/24 06/27/24 06/26/24 History (Restoril) Allergies Allergy/AdvReac Type Severity Reaction Status Date / Time codeine Allergy Unknown Verified 06/14/24 11:18 fluticasone Allergy Unknown Verified 06/14/24 11:18 [From Advair Diskus] Penicillins Allergy Unknown Verified 06/14/24 11:18 salmeterol Allergy Unknown Verified 06/14/24 11:18 [From Advair Diskus] Sulfa (Sulfonamide Allergy Unknown Verified 06/14/24 11:18 Antibiotics) etanercept [From Enbrel] AdvReac Intermediate rash Verified 06/14/24 11:18 methotrexate AdvReac Intermediate hair loss Verified 06/14/24 11:18 upadacitinib [From Rinvoq] AdvReac Intermediate rash Verified 06/14/24 11:18 Current Medications Generic Name Dose Route Start Last Admin Trade Name Freq PRN Reason Stop Dose Admin Sodium Chloride 1,000 mls @ 30 mls/hr 06/28/24 07:15 06/28/24 07:36 Sodium Chloride 0.9% IV 06/29/24 07:14 30 mls/hr .Q24H NANCY Administration PFSH Anesthesia Medical History JUAN JOSE (obstructive sleep apnea) Hypothyroid Migraine Hyperlipidemia CKD (chronic kidney disease) Herpes zoster hx of recurrent zoster Immunization counseling Seronegative rheumatoid arthritis of both hands Degenerative cervical spinal stenosis Adult onset hypothyroidism Acid reflux Situational anxiety Herpes, genital Seronegative rheumatoid arthritis Insomnia Chronic pain Anxiety Vitamin D deficiency Hypertension Mixed hyperlipidemia Elevated glucose Chronic epigastric pain Acute meniscal tear of left knee High risk medication use Seronegative spondyloarthropathy Emphysema/COPD Fatigue Fibromyalgia Myalgia Surgical History History of arthroscopy of both knees History of arthroscopic surgery of shoulder History of cholecystectomy History of hysterectomy History of eyelid surgery Family History Other Myocardial infarct Social History Smoking and tobacco/nicotine status: never used tobacco/nicotine Alcohol intake: current Alcohol intake frequency: holidays/special occasions only Data Anesthesia Cardiac Studies: No Data to Display
[2024-06-28] MEDS: fentaNYL 50 mcg/mL INJ 2mL IVP (09:18)
[2024-06-28] MEDS: lidocaine-epi 1% PF 1:200,000 30 mL SDV INJECTION (10:34)
[2024-06-28] MEDS: clindamycin 600 MG/50 ML PREMIX 100 MG IV (11:00)
--- NOTE | 2024-06-28 11:29 | PM.OP ---
Operative Report Date of procedure: June 28, 2024 Pre-op diagnosis: Lumbar stenosis with neurogenic claudication; discitis Post-op diagnosis: same Procedure done: L4-5 laminectomy with partial facetectomy and discectomy Surgeon: Adiel Lion DO Estimated blood loss (mL): 25 Procedure: L4-5 laminectomy with partial facetectomy and discectomy Patient is brought to the operative suite. After undergoing anesthesia they are placed in the prone position. All areas of impingement are well padded. Patient is then prepped and draped in the normal sterile fashion. A skin incision is made over the L4-5 level. This is confirmed under c-arm guidance. A series of dilators are passed and the tubular retractor is docked on the L4 lamina. A bovie is used to clear the soft tissue off the lamina and the L 4/5 facet joint. A high speed jacob is then used to perform the laminectomy and take down the medial aspect of the L 4/5 facet joint. A kerrison rongeure was then used to take down the remaining lamina and smooth the edge of the laminectomy up to the point where the ligamentum flavum attaches. Attention was then brought to the medial aspect of the facet joint. The remaining medial aspect of the superior and inferior aspect of the facet joint were taken down with the kerrison from the pedicle of L4 to L 5. The facet joint had significant hypertrophy. Attention was then brought to the Ligamentum Flavum. The ligament was taken down from the lamina of L4 to L5 and out medially to the remaining facet joint. The ligament was thick. The dura was then exposed. The dura was in good repair. We retracted medially disc was identified. Small cut was made in the space and pieces of disc were taken for culture. The L4 nerve was then traced with a curette out the L4/5 foramen and found to be adequately decompressed. The L5 nerve was traced with a curette around the L5 pedicle. The lateral recess was opened with a kerrison helping to further decompress the L5 nerve. Wound is then irrigated copiously with saline and surgiflo is used to stop any bleeding. The tubular retractor is removed and the wound is closed with vicryl and monocryl suture. Glue is then used to protect the wound. A sterile dressing is then placed. Patient was then placed in the supine position and transferred to the PACU in stable condition.
[2024-06-28] MEDS: HYDROcodone-acetaminophen 10-325 mg Tablet 1 TAB PO (12:34)
--- NOTE | 2024-06-28 13:05 | ANE.PACU2 ---
Inpatient post-anesthesia follow up: Airway intact: Yes Vital signs: Temperature 97.8 F Pulse Rate 87 Respiratory Rate 16 Blood Pressure 147/85 Pulse Oximetry 97 Oxygen Delivery Me thod Room Air Oxygen Flow Rate Fraction of Inspir ed Oxygen Hydration adequate: Yes Nausea and vomiting: No Pain level: 1 Mental status: Baseline
== END 2024-06-28 13:05 | disposition home or self-care (01) ==
PROVIDERS: PCP Nurse Practitioner Family; Visit Provider Orthopaedic Surgery
PROC: (CPT 63005; principal; 2024-06-28 08:40)
DX: M48.062 Spinal stenosis, lumbar region with neurogenic claudication (principal); J44.9 Chronic obstructive pulmonary disease, unspecified; K21.9 Gastro-esophageal reflux disease without esophagitis; E78.5 Hyperlipidemia, unspecified; M79.7 Fibromyalgia; G47.33 Obstructive sleep apnea (adult) (pediatric); E03.9 Hypothyroidism, unspecified
CPT/HCPCS: 63030; 72020; 76000; 87070; 87075; 87176; 87205; J1100; J2371; J2405; J2704; J2710; J3010; J3490; J7030

== ENCOUNTER → 2024-07-11 08:49 | Outpatient (BNVA) | payer MEDICARE, MEDICAID, SELFPAY | PROVIDERS: PCP Nurse Practitioner Family; Visit Provider Orthopaedic Surgery | DX: Z98.890 Other specified postprocedural states (principal) | CPT/HCPCS: 99024 ==

== ENCOUNTER → 2024-08-29 14:00 | Outpatient (BNVA) | payer MEDICARE, MEDICAID, SELFPAY | PROVIDERS: PCP Nurse Practitioner Family; Visit Provider Orthopaedic Surgery | DX: Z98.890 Other specified postprocedural states (principal) | CPT/HCPCS: 99024 ==

== ENCOUNTER 2024-10-01 12:17 | Outpatient (CLI) | payer OTHER, MEDICAID, SELFPAY | END 2024-10-01 12:18 | disposition home or self-care (01) | LOC: SLEEP 12:18 | PROVIDERS: PCP Nurse Practitioner Family; Visit Provider Nurse Practitioner Family | DX: G47.33 Obstructive sleep apnea (adult) (pediatric) (principal) | CPT/HCPCS: G0399 ==

== ENCOUNTER → 2024-10-10 12:54 | Outpatient (BNVA) | payer MEDICARE, MEDICAID, SELFPAY | PROVIDERS: PCP Nurse Practitioner Family; Visit Provider Orthopaedic Surgery | DX: Z98.890 Other specified postprocedural states (principal) | CPT/HCPCS: 99024 ==

== ENCOUNTER → 2024-11-28 12:34 | Outpatient (BNVA) | payer MEDICAID, MEDICARE, SELFPAY | PROVIDERS: PCP Nurse Practitioner Family; Visit Provider Orthopaedic Surgery | DX: M54.9 Dorsalgia, unspecified (principal); Z98.890 Other specified postprocedural states | CPT/HCPCS: 81001; 99213 ==

== ENCOUNTER → 2024-12-04 11:54 | Outpatient (BNVA) | payer MEDICARE, MEDICAID, SELFPAY | PROVIDERS: PCP Nurse Practitioner Family; Visit Provider Nurse Practitioner Family | DX: E87.5 Hyperkalemia (principal); E03.9 Hypothyroidism, unspecified; M79.10 Myalgia, unspecified site; Z79.899 Other long term (current) drug therapy | CPT/HCPCS: 80053; 80061; 83036; 84443; 85025 ==

== ENCOUNTER → 2024-12-09 14:06 | Outpatient (BNVA) | payer MEDICARE, MEDICAID, SELFPAY | PROVIDERS: PCP Nurse Practitioner Family; Visit Provider Nurse Practitioner Family | DX: M25.551 Pain in right hip (principal); R10.9 Unspecified abdominal pain | CPT/HCPCS: 73502; 74018 ==

== ENCOUNTER 2024-12-27 11:26 | Emergency (ER) | payer MEDICARE, MEDICAID, SELFPAY ==
[2024-12-27 11:31] VITALS: BP 161/90; PULSE 63; RESP 18; O2SAT 98; BMI 22.8
--- NOTE | 2024-12-27 11:43 | XR_ITS ---
WS: [id number] Portable AP upright chest, 12/27/2024 Clinical Data: near syncope Comparison: Two-view chest, 02/27/2019 Findings: No nodules, masses or effusions are seen. The heart is normal. The pulmonary vascularity is not increased. No pneumonia or pneumothorax is seen. The aortic arch and descending thoracic aorta show mild tortuosity. XR/XR chest 1V portable [id number] Impression: Atherosclerosis.
--- NOTE | 2024-12-27 11:45 | ECG_ITS ---
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: : [id number] Requested By: Félix Alford Order Number: [id number] Reading MD: ISAIAS BEAL Measurements Intervals [place] Rate: 60 P: 17 MN: 173 QRS: 46 QRSD: 107 T: 91 QT: 473 QTc: 473 Interpretive Statements SINUS RHYTHM NONSPECIFIC ST & T-WAVE ABNORMALITY PROLONGED QT INTERVAL Compared to ECG 03/22/2024 11:04:39 T-wave abnormality now present Prolonged QT interval now present Left ventricular hypertrophy no longer present ST (T wave) deviation no longer present Electronically Signed On 12-29-2024 21:04:52 [employer] by ISAIAS BEAL [email or web address]
--- NOTE | 2024-12-27 11:47 | W.ED.SYNCOPE ---
HPI - Syncope General: Chief Complaint: Syncope Stated Complaint: syncope Time Seen by Provider: 12/27/24 11:26 Source: patient and EMS Mode of arrival: EMS Limitations: no limitations History of Present Illness: This patient was transported to the emergency 5 by EMS from her clinician's office. Patient begins the conversation by stating she has a history of anxiety and that she has been dealing with who is currently hospitalized with cancer. But today she was at her primary care office asking about if there was a follow-up on her abnormal x-ray. She been having some back pain that only came on with certain movements and certain activities and apparently had a plain film x-ray done there was a suggestion of nephrolithiasis according to the patient and she did not know if there was further workup indicated or not. While she was standing there speaking with the staff she became more anxious and had an episode where she felt like she was going to pass out. She did not did not actually fall or injure herself but EMS was then notified. Patient states that she has had episodes like this intermittently for 20 years. At one time she was referred to Dr. 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 She denies any concomitant chest pain or shortness of breath other than she has what she calls bronchial asthma that she has had since a child and sometimes when she gets anxious she becomes more wheezy. She denies any history of kidney stones, blood in her urine etc. She denies any history of recent falls or back trauma. She did have a laminectomy done at this facility earlier this year. She states that most of the the back pain that she has been having is on her right side in the low back and radiates around to her groin and only comes on when she does certain twisting turning or movements. She denies any loss of bowel or bladder control or if perianal numbness. She denies any lower extremity weakness. She states the symptoms never occur when she is sleeping or otherwise not engaging in certain activities. Again she relates that she has ongoing anxiety and she also has constipation because of daily opiate use for her back pain. No known history of cardiovascular disease other than tachycardia noted above. Witnessed: Yes - by Other Context: standing up Injuries sustained associated with event: none Associated symptoms: Deny abdominal pain, chest pain, fever(s), headache(s), lightheadedness, nausea or vertigo Treatments prior to arrival: none Related Data Home Medications ?Medication ?Instructions ?Recorded ?Confirmed hydrocodone 10 mg-acetaminophen 1 tab PO Q6H PRN Pain 07/29/20 12/27/24 325 mg tablet multivitamin-folic acid 400 1 tab PO QAM 03/29/21 12/27/24 mcg-biotin 2,000 mcg tablet (Gtph-Kpyi-Cuqtp (njthsmda-myncs-ujfyfu)) aspirin 81 mg tablet,delayed 81 mg PO DAILY 01/19/22 12/27/24 release (Adult Low Dose Aspirin) sumatriptan succinate 100 mg tablet 100 mg PO Q2H PRN Migraine Headache 04/29/24 12/27/24 docusate sodium 100 mg capsule 100 mg PO DAILY 08/01/24 12/27/24 (Colace) escitalopram oxalate 20 mg tablet 20 mg PO DAILY 12/27/24 12/27/24 gabapentin 400 mg capsule 400 mg PO TID 12/27/24 12/27/24 penciclovir 1 % topical cream 1 applic topical Q2H PRN fever 12/27/24 12/27/24 (Denavir) blister polyethylene glycol 3350 17 17 g PO DAILY PRN Constipation 12/27/24 12/27/24 gram/dose oral powder (Miralax) temazepam 30 mg capsule 30 mg PO BEDTIME 12/27/24 12/27/24 tizanidine 4 mg tablet 4 mg PO BID PRN muscle spasticity. 12/27/24 12/27/24 triamcinolone acetonide 55 mcg 2 spray intranasal DAILY 12/27/24 12/27/24 nasal spray aerosol Previous Rx's ?Medication ?Instructions ?Recorded diclofenac sodium 1 % topical gel See Rx Instructions .Route 07/25/23 .COMPLEX #200 grams lidocaine-prilocaine 2.5 %-2.5 % 1 applic topical ONCE PRN pain #30 04/29/24 topical cream grams diclofenac sodium 75 mg 75 mg PO BID #180 tabs 05/28/24 tablet,delayed release rosuvastatin 40 mg tablet (Crestor) 40 mg PO DAILY #90 tabs 05/28/24 cetirizine 10 mg tablet (Zyrtec) 10 mg PO DAILY #90 tabs 10/10/24 auto titrating cpap at 6-16cm #1 ea 10/30/24 pantoprazole 40 mg tablet,delayed 40 mg PO BID #180 tabs 12/04/24 release (Protonix) levothyroxine 150 mcg capsule 150 mcg PO DAILY #90 caps 12/12/24 Allergies Allergy/AdvReac Type Severity Reaction Status Date / Time trolamine salicylate (From Allergy Severe rash Verified 12/04/24 10:46 Aspercreme) codeine Allergy Unknown Verified 12/04/24 10:46 fluticasone (From Advair Allergy Unknown Verified 12/04/24 10:46 Diskus) Penicillins Allergy Unknown Verified 12/04/24 10:46 salmeterol (From Advair Allergy Unknown Verified 12/04/24 10:46 Diskus) Sulfa (Sulfonamide Allergy Unknown Verified 12/04/24 10:46 Antibiotics) etanercept (From Enbrel) AdvReac Intermediate rash Verified 12/04/24 10:46 methotrexate AdvReac Intermediate hair loss Verified 12/04/24 10:46 upadacitinib (From Rinvoq) AdvReac Intermediate rash Verified 12/04/24 10:46 Review of Systems Const: Denies: fever(s) or chills Eyes: Denies: change in vision ENMT: Denies: throat pain or odynophagia Card: Denies: chest pain, palpitations, irregular heart rhythm, lightheadedness, dyspnea on exertion or orthopnea Resp: Denies: dyspnea, productive cough or non-productive cough GI: Denies: abdominal pain, nausea, vomiting or diarrhea : Denies: flank pain, difficulty voiding, dysuria or urinary frequency Musc: Reports: back pain; Denies: neck pain, extremity pain or extremity swelling Skin/Breast: Denies: rash Neuro: Denies: headache(s), numbness in extremities, weakness in extremities, dizziness or vertigo Psych: Reports: anxiety Endo: Denies: polyuria or polydipsia Jeb/Lymph: Denies: easy bruising or easy bleeding PFSH ED PFSH: Medical History JUAN JOSE (obstructive sleep apnea) Hypothyroid Migraine Hyperlipidemia CKD (chronic kidney disease) Herpes zoster hx of recurrent zoster Immunization counseling Seronegative rheumatoid arthritis of both hands Degenerative cervical spinal stenosis Adult onset hypothyroidism Acid reflux Situational anxiety Herpes, genital Seronegative rheumatoid arthritis Insomnia Chronic pain Anxiety Vitamin D deficiency Hypertension Mixed hyperlipidemia Elevated glucose Chronic epigastric pain Acute meniscal tear of left knee High risk medication use Seronegative spondyloarthropathy Emphysema/COPD Fatigue Fibromyalgia Myalgia Surgical History History of arthroscopy of both knees History of arthroscopic surgery of shoulder History of cholecystectomy History of hysterectomy History of eyelid surgery Family History Other Myocardial infarct Social History Smoking and tobacco/nicotine status: never used tobacco/nicotine Alcohol intake: current Alcohol intake frequency: holidays/special occasions only Physical Exam Narrative: EXAM NARRATIVE: Patient appears to be in no acute distress makes good eye contact speech is goal-directed and fluent. Const: COMMON NORMALS: patient oriented x3 GENERAL APPEARANCE: cooperative and comfortable HENMT: COMMON NORMALS: normocephalic, Normal nasal mucous membranes and turbinates present, moist oral mucous membranes and oropharynx normal HEAD & SCALP: normocephalic NOSE: Normal nasal mucous membranes and turbinates present Eye: COMMON NORMALS: Equal, round and reactive pupils present, EOMs intact bilaterally and conjunctivae normal CONJUNCTIVA: Yes conjunctivae normal PUPIL: Yes Equal, round and reactive pupils present Neck/C-Spine: COMMON NORMALS: full ROM, no lymphadenopathy, Thyroid normal and No carotid bruits THYROID: Thyroid normal Chest: COMMONS NORMALS: normal inspection of the chest Resp: COMMON NORMALS: normal respiratory effort, No retractions, No use of accessory muscles and clear to auscultation bilaterally AUSCULTATION: clear to auscultation bilaterally Cardio: COMMON NORMALS: regular rate, regular rhythm, No murmurs present (Cardio) and Peripheral pulses 2+ throughout RATE: regular rate RHYTHM: regular rhythm PERIPHERAL PULSES: Peripheral pulses 2+ throughout GI: COMMON NORMALS: Normal to inspection, nondistended, normoactive bowel sounds present, Soft to palpation and non-tender PALPATION: Yes Soft to palpation : COMMON NORMALS: Yes no CVA tenderness BLADDER/KIDNEY EXAM: Yes no CVA tenderness Back/Pelvis: COMMON NORMALS: no CVA tenderness, thoracic and lumbar spine normal to inspection and straight leg raise negative bilaterally SACROILIAC JOINTS: Yes SI joint(s) abnormal SI joint details: tender to palpation (Right sided reproduces symptoms) OTHER: Palpation of soft tissue over the right sacroiliac joint reproduces symptoms. Internal and external rotation of the hip reproduces no symptoms. Rotation of the lumbar region to the right reproduces symptoms. Negative straight leg raising bilaterally no sensory or motor loss. Extremity: COMMON NORMALS: normal to inspection, full ROM, no calf tenderness and no pedal edema Neuro: COMMON NORMALS: patient oriented x3, moves all extremities, no focal motor deficits and no sensory deficits noted GAIT: Yes Normal gait present Psych: COMMON NORMALS: mental status grossly normal Skin: COMMON NORMALS: no rashes or lesions noted, no wounds and turgor normal GENERAL SKIN EXAM: no rashes or lesions noted and turgor normal Course Reevaluation(s): Reevaluation #1: Patient ambulated without difficulty although so she had some mild subjective lightheadedness feelings. She did not did not display any arrhythmias etc. while in the emergency department. Noted that she is moderately hypertensive here in the emergency department but she has had a history of fluctuating blood pressures and so I do not know that this is a contributing factor to her current symptoms or not but I am reluctant to start any antihypertensives given that she has had a history of low and normal blood pressures in the past. She does not have any current history or findings to suggest a [employer]OR [employer] either central or peripheral etiology to her symptoms it sounds more like she has lightheadedness and near syncope. She had normal resting EKGs here and no evidence of arrhythmias however I think prolonged monitoring is going to be important to establish whether this lady is having any sustained dysrhythmia contributing to her symptoms. I also shared with her her CT scan showing that she has a nonobstructive small ureteral stone which may or may not be a factor in some of her intermittent back pain given the fact that she has reproducible tenderness and symptom reproduction with her right sacroiliac joint. The patient does not have any evidence of an ongoing emergency medical condition and will be discharged outpatient follow-up we will place a consultation for psychiatric social worker placement. Time: 14:22 Vital Signs: Vital signs: Vital Signs Temperature 97.5 F L 12/27/24 12:22 Pulse Rate 64 12/27/24 13:39 Respiratory Rate 16 12/27/24 13:39 Blood Pressure 131/82 12/27/24 13:39 Pulse Oximetry 97 12/27/24 13:39 Oxygen Delivery Me thod Room Air 12/27/24 13:39 MDM - Syncope Medical Decision Making This patient made her way to the emergency department as noted in the HPI. She has a longstanding history of anxiety. She also has self-reported history of having episodes for many years. She states she occasionally gets episodes of lightheadedness and a funny feeling in her legs and then feels like she is going to pass out. She denies any concomitant chest pain palpitations etc. She had an episode today at the primary care clinic and was referred to the emergency department. She also has a history of intermittent right flank pain that is worse with activity and certain movements. She was told she might have a kidney stone but has not had any history of known diagnosis of nephrolithiasis etc. Her workup today did not reveal any evidence of central nervous system findings suggestive of vertigo, focal neurologic findings etc. She ambulated and had normal gait. She did have reproducible right posterior superior iliac spine tenderness over her right SI joint which reproduced her symptoms of back pain. Workup otherwise was reassuring. She had no evidence of electrolyte abnormalities, anemia, did not display any arrhythmias while in the emergency department. She did have a lab labile blood pressure values noted however given her history I am reluctant to initiate any antihypertensives at this time. She does have a nonobstructive noninfected right renal calculus which will need follow-up but I do not think that that is not a acute ongoing process at this time. We have placed a consult for a psychiatric social worker and will refer her back for follow-up and also discussed return precautions with both she and spouse. Patient also has significant anxiety secondary to her 's current illness and that may or may not be a contributing factor to some of her presentations. Lab Data I reviewed the patient's lab results. 12/27/24 11:30 12/27/24 11:30 Radiology Impressions Chest X-Ray 12/27/24 11:43 Impression: Atherosclerosis. Abdomen/Pelvis CT 12/27/24 11:55 IMPRESSION: 1. No renal obstruction or ureteral obstruction. 2. Nonobstructing calcification lower pole RIGHT kidney, 5 mm. 3. Appendix is not identified. 4. Constipation. 5. Prior cholecystectomy and hysterectomy. Laboratory Results WBC 9.64 10^3/uL (3.29-11.43) 12/27/24 11:30 RBC 4.58 10^6/uL (3.85-5.65) 12/27/24 11:30 Hgb 12.80 g/dL (11.27-16.99) 12/27/24 11:30 Hct 39.4 % (36-47) 12/27/24 11:30 MCV 86.0 fl (85-98) 12/27/24 11:30 MCH 27.9 pg (27-33) 12/27/24 11:30 MCHC 32.5 g/dL (30-55) 12/27/24 11:30 RDW 14.8 % (12.1-15.1) 12/27/24 11:30 Plt Count 432 10^3/cmm (157-399) H 12/27/24 11:30 MPV 11.3 fL (7.4-10.4) H 12/27/24 11:30 Neut % (Auto) 59.2 % 12/27/24 11:30 Lymph % (Auto) 26.9 % 12/27/24 11:30 [place] % (Auto) 8.0 % 12/27/24 11:30 Eos % (Auto) 4.7 % 12/27/24 11:30 Baso % (Auto) 0.8 % 12/27/24 11:30 Neut # (Auto) 5.71 10^3/uL (1.8-7.7) 12/27/24 11:30 Lymph # (Auto) 2.6 10^3/uL (0.8-4.8) 12/27/24 11:30 [place] # (Auto) 0.8 10^3/uL (0.2-0.9) 12/27/24 11:30 Eos # (Auto) 0.5 10^3/uL (0.0-0.8) 12/27/24 11:30 Baso # (Auto) 0.1 10^3/uL (0.0-0.1) 12/27/24 11:30 Nucleated RBC % (auto) 0 % 12/27/24 11:30 Nucleated RBCs # 0.0 /100WBC 12/27/24 11:30 Sodium 139 mmol/L (136-145) 12/27/24 11:30 Potassium 4.0 mmol/L (3.5-5.1) 12/27/24 11:30 Chloride 101 mmol/L (98-107) 12/27/24 11:30 Carbon Dioxide 25 mmol/L (22-29) 12/27/24 11:30 Anion Gap 17.0 (5-19) 12/27/24 11:30 BUN 18 mg/dL (8-23) 12/27/24 11:30 Creatinine 1.2 mg/dL (0.5-0.9) H 12/27/24 11:30 GFR Calculation 44.7 mL/min (90-130) L 12/27/24 11:30 Glucose 98 mg/dL (65-115) 12/27/24 11:30 Calculated Osmolality 290 mOsm/kg (285-295) 12/27/24 11:30 Calcium 9.8 mg/dL (8.5-10.5) 12/27/24 11:30 Magnesium 2.2 mg/dL (1.7-2.3) 12/27/24 11:30 Total Bilirubin 0.6 mg/dL (0.15-1.2) 12/27/24 11:30 AST 23 U/L (0-32) 12/27/24 11:30 ALT 24 U/L (0-33) 12/27/24 11:30 Alkaline Phosphatase 107 U/L (35-105) H 12/27/24 11:30 Troponin T Baseline 9 ng/L (0-10) 12/27/24 11:30 Total Protein 6.5 g/dL (6.6-8.7) L 12/27/24 11:30 Albumin 4.3 g/dL (3.5-5.2) 12/27/24 11:30 Globulin 2.2 g/dL (1.3-4.6) 12/27/24 11:30 Urine Color Yellow (Yellow) 12/27/24 12:28 Urine Appearance Clear (CLEAR) 12/27/24 12:28 Urine pH 7.5 (5-7) 12/27/24 12:28 Ur Specific [place] 1.009 (1.005-1.030) 12/27/24 12:28 Urine Protein Negative (Negative) 12/27/24 12:28 Urine Glucose (UA) Negative (Normal) 12/27/24 12:28 Urine Ketones Negative (Negative) 12/27/24 12:28 Urine Blood Negative (Negative) 12/27/24 12:28 Urine Nitrate Negative (Negative) 12/27/24 12:28 Urine Bilirubin Negative (Negative) 12/27/24 12:28 Urine Urobilinogen 1.0 mg/dL (Negative) 12/27/24 12:28 Ur Leukocyte Esterase Negative (Negative) 12/27/24 12:28 Urine RBC 0-2 /hpf (0-2) 12/27/24 12:28 Urine WBC 0-5 /hpf (0-5) 12/27/24 12:28 Ur Squamous Epith Cells 0-5 /hpf (0-5) 12/27/24 12:28 Calcium Oxalate Crystal 0-4 /hpf H 12/27/24 12:28 Amorphous Sediment Not Reportable 12/27/24 12:28 Urine Bacteria None seen /hpf (NONE) 12/27/24 12:28 Hyaline Casts 13.63 /lpf 12/27/24 12:28 All radiology interpretation(s) finalized by discharge EKG Data EKG 1: I personally reviewed and interpreted this EKG as follows: Interpretation: Review of resting EKG reveals ventricular rate of 60 bpm. Normal AK interval, QRS duration, corrected QT interval. Consistent with normal sinus rhythm. She has some nonspecific ST-T wave changes noted in the anterior precordial leads as well as in the lateral leads. No discernible ischemia or arrhythmia noted. Discharge Plan Discharge Patient Disposition: Home Clinical Impression: Near syncope, Sacroiliac joint dysfunction of right side, Elevated blood pressure reading, Ureterolithiasis Condition: Stable Prescriptions: No Action hydrocodone-acetaminophen 10-325 mg tablet 1 tab PO Q6H PRN (Reason: Pain) Patient Comments: Follows with Dr. Parikh Cjsy-Kbze-Trisu (ul-CT-swldxn) 400-2,000 mcg tablet 1 tab PO QAM aspirin [Adult Low Dose Aspirin] 81 mg tablet,delayed release (DR/EC) 81 mg PO DAILY diclofenac sodium 75 mg tablet,delayed release (DR/EC) 75 mg PO BID Qty: 180 1RF rosuvastatin [Crestor] 40 mg tablet 40 mg PO DAILY Qty: 90 1RF docusate sodium [Colace] 100 mg capsule 100 mg PO DAILY pantoprazole [Protonix] 40 mg tablet,delayed release (DR/EC) 40 mg PO BID Qty: 180 1RF cetirizine [Zyrtec] 10 mg tablet 10 mg PO DAILY Qty: 90 1RF (DME) auto titrating cpap at 6-16cm See Rx Instructions .Route .MEDSUPPLY Qty: 1 0RF Rx Instructions: As directed sumatriptan succinate 100 mg tablet 100 mg PO Q2H PRN (Reason: Migraine Headache) Rx Instructions: do not exceed 2 doses per 24 hrs lidocaine-prilocaine 2.5-2.5 % cream 1 applic topical ONCE PRN (Reason: pain) Qty: 30 0RF diclofenac sodium 1 % gel See Rx Instructions .ROUTE .COMPLEX Qty: 200 2RF Dose Instruction: APPLY 4 grams topically FOUR TIMES DAILY, APPLY TO single knee,ankle,foot; FOR foot includes sole/toes/top of foot Rx Instructions: APPLY 4 grams topically FOUR TIMES DAILY, APPLY TO single knee,ankle,foot; FOR foot includes sole/toes/top of foot levothyroxine 150 mcg capsule 150 mcg PO DAILY Qty: 90 0RF tizanidine 4 mg tablet 4 mg PO BID PRN (Reason: muscle spasticity.) gabapentin 400 mg capsule 400 mg PO TID penciclovir [Denavir] 1 % cream 1 applic topical Q2H PRN (Reason: fever blister) temazepam 30 mg capsule 30 mg PO BEDTIME triamcinolone acetonide 55 mcg aerosol,spray 2 spray intranasal DAILY polyethylene glycol 3350 [Miralax] 17 gram/dose powder 17 g PO DAILY PRN (Reason: Constipation) escitalopram oxalate 20 mg tablet 20 mg PO DAILY Discharge Orders: Discharge ED (Routine); Ordered 12/27/24 Ordered By: Félix Alford Referrals: Kaylen Mattson FNP [Primary Care Provider] - 2 weeks Discharge Diet: Usual diet Discharge Activity: Increase activity as tolerated Patient Instructions: Opioid Safety, Pain Management Activity Restrictions/Additional Instructions: You should continue all your usual medications as prescribed. Patient obtain a blood pressure cuff and monitor your blood pressure after sitting for 10 to 15 minutes twice daily and record those numbers for your primary zoo caretaker. You will be contacted by cardiology regarding setting up your psychiatric social worker. If you develop any new worsening or persistent symptoms you are welcome to return to the emergency department at any time. Print Language: Zimbabwean Coding Level of Care Code ED Appellate Court Judge for Mat Tavarez
--- NOTE | 2024-12-27 11:55 | CT_ITS ---
WS: [id number] CT ABDOMEN AND PELVIS NONCONTRAST HISTORY: right flank pain? stone on recent kub TECHNIQUE: Imaging performed through the abdomen and pelvis. Coronal and sagittal reformats are submitted. All CT scans at [facility] use at least one of these dose optimization techniques: automated exposure control; mA and/or kV adjustment per patient size (includes targeted exams where dose is matched to clinical indication); or iterative reconstruction. DLP: 696.20 mGy.cm COMPARISON: Radiograph 12/09/[address] 01/30/2018 Lower thorax: Subsegmental atelectasis at the LEFT lung base. Visualized heart is normal. No hiatal hernia. Liver: Normal size liver. No mass or bile duct dilatation. Gallbladder: Cholecystectomy. Pancreas: Normal size and attenuation. Normal pancreatic duct. No pancreatitis or mass. Spleen: Normal. Adrenal glands: Normal. No mass. Right kidney: Nonobstructing 5 mm calcification lower pole. No renal calcifications. Left kidney: Normal size kidney with no mass or hydronephrosis. Aorta: Mild atherosclerosis abdominal aorta with no aneurysm. No free fluid, intraperitoneal air or significant lymphadenopathy. GI tract: No obstruction. Mild diffuse constipation. The appendix is not definitely visualized. Appendix has not been visualized on prior imaging studies either. There is no inflammation in the RIGHT lower quadrant. Abdominal wall: Negative. No hernia. Pelvis: Prior hysterectomy. No free fluid or adenopathy. Urinary bladder is negative. Osseous structures: Advanced degenerative disc disease at L4-5. Bilateral foraminal narrowing at L4-5 and L5-S1. Degenerative changes involving the L4-5 disc are new since 2018. CT/CT abdomen pelvis wo con [id number] IMPRESSION: 1. No renal obstruction or ureteral obstruction. 2. Nonobstructing calcification lower pole RIGHT kidney, 5 mm. 3. Appendix is not identified. 4. Constipation. 5. Prior cholecystectomy and hysterectomy.
[2024-12-27 12:01] LABS: Basophils # 0.1 10^3/uL (0.0-0.1); Basophils % 0.8 %; Eosinophils # 0.5 10^3/uL (0.0-0.8); Eosinophils % 4.7 %; Hematocrit 39.4 % (36-47); Lymphocytes # 2.6 10^3/uL (0.8-4.8); Lymphocytes % 26.9 %; Mean Corpuscular HGB Conc 32.5 g/dL (30-55); Mean Corpuscular Hemoglobin 27.9 pg (27-33); Mean Platelet Volume 11.3 fL (7.4-10.4); Monocytes # 0.8 10^3/uL (0.2-0.9); Neutrophils # 5.71 10^3/uL (1.8-7.7); Neutrophils % 59.2 %; Nucleated Red Blood Cells % 0 %; Platelet Count 432 10^3/cmm (157-399); Red Blood Count 4.58 10^6/uL (3.85-5.65); Red Cell Distribution Width 14.8 % (12.1-15.1); White Blood Count 9.64 10^3/uL (3.29-11.43)
[2024-12-27 12:15] LABS: Troponin(5th) Baseline 9 ng/L (0-10)
[2024-12-27 12:21] LABS: Alanine Aminotransferase 24 U/L (0-33); Albumin Level 4.3 g/dL (3.5-5.2); Alkaline Phosphatase 107 U/L (35-105); Aspartate Amino Transferase 23 U/L (0-32); Blood Urea Nitrogen 18 mg/dL (8-23); Calcium 9.8 mg/dL (8.5-10.5); Carbon Dioxide 25 mmol/L (22-29); Chloride 101 mmol/L (98-107); Creatinine Clr Calc Pharmacy 49.5468; Globulin 2.2 g/dL (1.3-4.6); Glomerular Filtration Rate 44.7 mL/min (90-130); Glucose 98 mg/dL (65-115); Magnesium 2.2 mg/dL (1.7-2.3); Osmolality Calculated 290 mOsm/kg (285-295); Sodium 139 mmol/L (136-145); Total Bilirubin 0.6 mg/dL (0.15-1.2); Total Protein 6.5 g/dL (6.6-8.7)
[2024-12-27 12:22] VITALS: BP 174/80; PULSE 65; RESP 16; TEMP 36.4; O2SAT 98
[2024-12-27 12:39] LABS: Bilirubin Urine Negative (Negative); Blood Urine Negative (Negative); Glucose Urine UA Negative (Normal); Ketones Urine Negative (Negative); Leukocyte Esterase Urine Negative (Negative); Nitrate Urine Negative (Negative); Protein Urine Negative (Negative); Specific Gravity, Urine 1.009 (1.005-1.030); Urine Appearance Clear (CLEAR); Urine Color Yellow (Yellow); pH Urine 7.5 (5-7)
[2024-12-27 12:42] LABS: Add Urine Microscopic? YES; Bacteria Urine None Seen /hpf; Hyaline Casts Urine 13.63 /lpf; RBC Urine 0-2 /hpf (0-2); Squamous Epithelial Cell Urine 0-5 /hpf (0-5); WBC Urine 0-5 /hpf (0-5)
[2024-12-27 12:48] LABS: UA Slide Review UA Slide Review Perf
[2024-12-27 12:49] LABS: Add Urine Culture? No; Calcium Oxalate Crystals Urine 0-4 /hpf
[2024-12-27 13:00] VITALS: BP 183/88; PULSE 62; RESP 16; O2SAT 96
[2024-12-27 13:14] VITALS: BP 131/82; BP 190/96; BP 194/95; PULSE 65; PULSE 69; PULSE 71
[2024-12-27 13:39] VITALS: BP 131/82; PULSE 64; RESP 16; O2SAT 97
--- NOTE | 2024-12-27 13:56 | ECG_ITS ---
[facility]: 2024-12[facility]27 Pat Name: Hailee Sotomayor Department: Room: Gender: Female Food Clerk: : [id number] Requested By: Félix Alford Order Number: [id number] Reading MD: ISAIAS BEAL Measurements Intervals Parsons Rate: 63 P: 68 NH: 168 QRS: 63 QRSD: 106 T: 82 QT: 468 QTc: 482 Interpretive Statements SINUS RHYTHM POSSIBLE LEFT VENTRICULAR HYPERTROPHY [VOLTAGE CRITERIA PLUS LAE OR QRS WIDENING] NONSPECIFIC ST & T-WAVE ABNORMALITY PROLONGED QT INTERVAL Compared to ECG 12/27/2024 11:42:02 No significant changes Electronically Signed On 12-29-2024 21:11:39 AUTOMOTIVE SERVICE TECHNICIAN by ISAIAS BEAL [email or web address]
[2024-12-27 15:07] VITALS: BP 185/118; PULSE 68; RESP 16; O2SAT 97
== END 2024-12-27 13:06 | disposition home or self-care (01) ==
PROVIDERS: Emergency Provider Emergency Medicine; PCP Nurse Practitioner Family
DX: R55 Syncope and collapse (principal); M99.04 Segmental and somatic dysfunction of sacral region; R03.0 Elevated blood-pressure reading, without diagnosis of hypertension; N20.1 Calculus of ureter; Z79.82 Long term (current) use of aspirin; E78.5 Hyperlipidemia, unspecified; N18.9 Chronic kidney disease, unspecified
CPT/HCPCS: 71045; 74176; 80053; 81001; 83735; 84484; 85025; 93005; 99285

== ENCOUNTER → 2025-01-09 09:44 | Outpatient (BNVA) | payer MEDICARE, MEDICAID, SELFPAY | PROVIDERS: Family Provider Nurse Practitioner Family; PCP Nurse Practitioner Family; Visit Provider Internal Medicine Cardiovascular Disease | DX: R55 Syncope and collapse (principal) | CPT/HCPCS: 93229; 93242 ==

== ENCOUNTER → 2025-01-23 10:20 | Outpatient (BNVA) | payer MEDICARE, MEDICAID, SELFPAY | PROVIDERS: PCP Nurse Practitioner Family; Visit Provider Nurse Practitioner Family | DX: M25.562 Pain in left knee (principal); G47.00 Insomnia, unspecified; K21.9 Gastro-esophageal reflux disease without esophagitis | CPT/HCPCS: 73562 ==

== ENCOUNTER → 2025-02-12 11:31 | Outpatient (BNVA) | payer MEDICARE, MEDICAID, SELFPAY | PROVIDERS: PCP Nurse Practitioner Family; Visit Provider Nurse Practitioner Family | DX: I47.10 Supraventricular tachycardia, unspecified (principal); E03.9 Hypothyroidism, unspecified | CPT/HCPCS: 80053; 84443 ==

== ENCOUNTER → 2025-03-10 11:59 | Outpatient (BNVA) | payer MEDICARE, MEDICAID, SELFPAY | PROVIDERS: PCP Nurse Practitioner Family; Visit Provider Nurse Practitioner Family | DX: R05.9 Cough, unspecified (principal); J18.9 Pneumonia, unspecified organism | CPT/HCPCS: 71046 ==

== ENCOUNTER → 2025-04-08 10:46 | Outpatient (BNVA) | payer MEDICARE, MEDICAID, SELFPAY | PROVIDERS: PCP Nurse Practitioner Family; Visit Provider Nurse Practitioner Family | DX: E03.9 Hypothyroidism, unspecified (principal); E55.9 Vitamin D deficiency, unspecified; N18.9 Chronic kidney disease, unspecified; M79.10 Myalgia, unspecified site; Z79.899 Other long term (current) drug therapy | CPT/HCPCS: 80053; 80061; 82306; 83036; 84443; 85025 ==

== ENCOUNTER → 2025-04-22 12:59 | Outpatient (BNVA) | payer MEDICARE, MEDICAID, SELFPAY | PROVIDERS: PCP Nurse Practitioner Family; Visit Provider Internal Medicine Cardiovascular Disease | DX: I47.10 Supraventricular tachycardia, unspecified (principal); F41.9 Anxiety disorder, unspecified; G58.9 Mononeuropathy, unspecified; Z79.82 Long term (current) use of aspirin; Z98.890 Other specified postprocedural states; R00.2 Palpitations | CPT/HCPCS: 99204 ==

== ENCOUNTER 2025-05-20 15:52 | Outpatient (CLI) | payer MEDICARE, MEDICAID, SELFPAY ==
--- NOTE | 2025-05-20 16:04 | XR_ITS ---
WS: [email or web address] XR ribs LT mn 3V w CXR1V [id number] REASON FOR EXAM: R07.81 - Pleurodynia FINDINGS: Except for an area of platelike atelectasis in the left lower lung the chest is unchanged compared to 03/10/2025. The heart and mediastinum are within normal limits. Calcified granulomatous disease bilaterally. Other than the presumed area of atelectasis no significant pulmonary parenchymal or pleural abnormality. Multiple views of the left ribs demonstrate no focal abnormality. Previous rotator cuff tendon repair and significant osteoarthritis of the left shoulder. XR/XR ribs LT mn 3V w CXR1V [id number] IMPRESSION: Presumed area of atelectasis in the left lower lung with no other significant a bnormality. No acute rib fracture identified.
--- NOTE | 2025-05-20 16:04 | XR_ITS ---
WS: [email or web address] XR elbow RT min 3V* [id number] REASON FOR EXAM: M25.521 - Pain in right elbow FINDINGS: No joint effusion identified. No acute fracture identified. The joint spaces of the elbow are intact and well preserved. No radiopaque soft tissue foreign body. XR/XR elbow RT min 3V* [id number] IMPRESSION: No acute abnormality.
--- NOTE | 2025-05-20 16:04 | XR_ITS ---
WS: [email or web address] XR elbow LT min 3V* [id number] REASON FOR EXAM: M25.521 - Pain in left elbow FINDINGS: Possible small joint effusion. Very subtle small deformity in the cortex of the radial head laterally. No other focal bone abnormality. Joint spaces of the elbow are intact and well preserved. No radiopaque foreign body. XR/XR elbow LT min 3V* [id number] IMPRESSION: Equivocal for occult subacute radial head fracture as above. Follow-up in 7 to 10 days as clinically warranted.
== END 2025-05-20 15:53 | disposition home or self-care (01) ==
LOC: RAD 15:55
PROVIDERS: PCP Nurse Practitioner Family; Visit Provider Nurse Practitioner Family
DX: M25.521 Pain in right elbow (principal); M25.522 Pain in left elbow; R07.81 Pleurodynia; M21.822 Other specified acquired deformities of left upper arm; M19.012 Primary osteoarthritis, left shoulder; J84.10 Pulmonary fibrosis, unspecified
CPT/HCPCS: 71101; 73080

== ENCOUNTER → 2025-05-28 15:14 | Outpatient (BNVA) | payer MEDICARE, MEDICAID, SELFPAY | PROVIDERS: PCP Nurse Practitioner Family; Visit Provider Nurse Practitioner Family | DX: M25.522 Pain in left elbow (principal) | CPT/HCPCS: 73080 ==

== ENCOUNTER → 2025-06-02 14:34 | Outpatient (BNVA) | payer MEDICARE, MEDICAID, SELFPAY | PROVIDERS: PCP Nurse Practitioner Family; Visit Provider Specialist | DX: M25.522 Pain in left elbow (principal); S50.02XA Contusion of left elbow, initial encounter; W19.XXXA Unspecified fall, initial encounter | CPT/HCPCS: 73080; 99204 ==

== ENCOUNTER 2025-06-03 11:07 | Outpatient (CLI) | payer MEDICARE, MEDICAID, SELFPAY ==
--- NOTE | 2025-06-03 12:00 | USCV_ITS ---
Hailee Sotomayor Age: 69 Gender: F : 1955 Exam Date: 06/03/2025 11:48 Ordering Phys: Stacie Patel MD ([email or web address]) Technologist: Exam Location[place] [facility] [place]: murmur BP: 148 / 70 HR: 74 Rhythm: Sinus Technical Quality: Adequate MEASUREMENTS (Male / Female) Normal Values 2D ECHO LV Diastolic Diameter PLAX 4.5 cm 4.2 - 5.9 / 3.9 - 5.3 cm IVS Diastolic Thickness 1.1 cm 0.6 - 1.0 / 0.6 - 0.9 cm IVS Systolic Thickness 1.8 cm LVPW Diastolic Thickness 1.0 cm 0.6 - 1.0 / 0.6 - 0.9 cm LVPW Systolic Thickness 1.5 cm LVOT Diameter 2.0 cm LV Ejection Fraction 2D Teich 72.1 % LV Ejection Fraction MOD 4C 56.5 % LV Ejection Fraction MOD 2C 62.2 % LV Ejection Fraction 2C AL 62.5 % LA Diameter 3.7 cm RA Systolic Volume 4C AL 30.0 ml RA Systolic Volume 4C MOD 27.9 ml Aorta at Sinotubular Diameter 3.1 cm IVC Diameter 1.7 cm M-MODE LA Ao Ratio MM 1.4 AV Cusp Separation MM 1.9 cm DOPPLER AV Peak Velocity 138.7 cm/s LVOT Peak Velocity 88.0 cm/s AV Area Cont Eq vti 2.4 cm squared AV Area Cont Eq pk 2.1 cm squared MV Peak Velocity 98.0 cm/s MV Area PHT 3.7 cm squared Mitral E to A Ratio 0.7 TV Peak Velocity 171.5 cm/s TR Peak Velocity 252.0 cm/s TR Peak Gradient 25.4 mmHg TV Peak E Velocity 72.0 cm/s PV Peak Velocity 111.0 cm/s FINDINGS Left Ventricle Normal left ventricular size, systolic function and wall thickness, with no regional wall motion abnormalities. Left ventricular ejection fraction is estimated at 60 %. Grade I/IV diastolic dysfunction (abnormal relaxation filling pattern), normal to mildly elevated filling pressures. Right Ventricle The right ventricle is normal in size and function. Right Atrium The right atrium is normal in size. Left Atrium The left atrium is normal in size. Mitral Valve Mildly thickened mitral valve. No mitral valve stenosis. Moderate mitral valve regurgitation. Aortic Valve Mild aortic valve calcification. No aortic valve stenosis. Trace aortic valve regurgitation. Tricuspid Valve Structurally normal tricuspid valve without significant stenosis or regurgitation. Pulmonary artery systolic pressure is normal. Pulmonic Valve Structurally normal pulmonic valve without significant stenosis. There is no pulmonic regurgitation. Pericardium Normal pericardium without effusion. Aorta Normal ascending aorta dimension. IVC The inferior vena cava appears normal. CONCLUSIONS Normal left ventricular size, systolic function and wall thickness, with no regional wall motion abnormalities. Left ventricular ejection fraction is estimated at 60 %. Grade I/IV diastolic dysfunction (abnormal relaxation filling pattern), normal to mildly elevated filling pressures. There is no pericardial effusion. Right atrial pressure is around 5 mm of mercury. Stacie Patel MD (Electronically Signed) Final Date: 07 June 2025 14:12 S
== END 2025-06-03 11:08 | disposition home or self-care (01) ==
LOC: RAD 11:08
PROVIDERS: PCP Nurse Practitioner Family; Visit Provider Internal Medicine Cardiovascular Disease
DX: R00.2 Palpitations (principal); R93.1 Abnormal findings on diagnostic imaging of heart and coronary circulation; I34.0 Nonrheumatic mitral (valve) insufficiency; I35.8 Other nonrheumatic aortic valve disorders
CPT/HCPCS: 93306

== ENCOUNTER 2025-06-12 10:55 | Outpatient (CLI) | payer MEDICARE, MEDICAID, SELFPAY ==
--- NOTE | 2025-06-12 11:00 | MM_ITS ---
WS: [id number] BILATERAL SCREENING DIGITAL TOMOSYNTHESIS MAMMOGRAM WITH CAD HISTORY: SCREENING COMPARISON: 06/04/2024, 01/25/2023 Bilateral CC and MLO views with tomosynthesis and synthetic mammography submitted. Computer aided detection analyzed. Breast composition: The breasts are heterogeneously dense, which may obscure small masses. No suspicious masses, microcalcifications or architectural distortion. MM/MM scr tomosynthesis [id number] IMPRESSION: BI-RADS: 1 - Negative FOLLOW UP: 1 Year Follow-up
== END 2025-06-12 10:56 | disposition home or self-care (01) ==
PROVIDERS: PCP Nurse Practitioner Family; Visit Provider Nurse Practitioner Family
DX: Z12.31 Encounter for screening mammogram for malignant neoplasm of breast (principal); R92.333 Mammographic heterogeneous density, bilateral breasts
CPT/HCPCS: 77063; 77067

== ENCOUNTER → 2025-06-17 09:06 | Outpatient (BNVA) | payer MEDICARE, MEDICAID, SELFPAY | PROVIDERS: PCP Nurse Practitioner Family; Visit Provider Internal Medicine Rheumatology | DX: M06.041 Rheumatoid arthritis without rheumatoid factor, right hand (principal); M06.042 Rheumatoid arthritis without rheumatoid factor, left hand; Z71.85 Encounter for immunization safety counseling; M79.10 Myalgia, unspecified site | CPT/HCPCS: 36415; 73130; 73502; 73562; 80076; 82306; 82565; 82657; 85025; 85651; 86140; 86480; 86704; 86803; 87340; 96372; 99215 ==

== ENCOUNTER → 2025-07-02 14:54 | Outpatient (BNVA) | payer MEDICARE, MEDICAID, SELFPAY | PROVIDERS: PCP Nurse Practitioner Family; Visit Provider Nurse Practitioner Family | DX: M25.531 Pain in right wrist (principal); M25.521 Pain in right elbow; M25.522 Pain in left elbow; W19.XXXA Unspecified fall, initial encounter; Y92.009 Unspecified place in unspecified non-institutional (private) residence as the place of occurrence of the external cause | CPT/HCPCS: 73080; 73110 ==

== ENCOUNTER → 2025-07-08 12:05 | Outpatient (BNVA) | payer MEDICARE, MEDICAID, SELFPAY | PROVIDERS: PCP Nurse Practitioner Family; Visit Provider Nurse Practitioner Family | DX: Z79.899 Other long term (current) drug therapy (principal) | CPT/HCPCS: 80076; 82565; 85025; 85651; 86140 ==

== ENCOUNTER 2025-07-24 10:47 | Outpatient (CLI) | payer MEDICARE, MEDICAID, SELFPAY ==
--- NOTE | 2025-07-24 11:00 | MR_ITS ---
WS: [id number] MRI HEAD WITHOUT CONTRAST TECHNIQUE: Sagittal T1, T2 axial, T2 axial FLAIR, axial and coronal T1 images, axial susceptibility weighted imaging, axial diffusion weighted images, and coronal T2 images were obtained. CLINICAL INFORMATION: R42 - Dizziness and giddiness COMPARISON: 2010 FINDINGS: No evidence of restricted diffusion to suggest acute ischemia. Ventricular system and basal cisterns are patent. Mild small vessel changes with mild parenchymal volume loss progressed since 2010. Evidence of RIGHT frontal craniotomy. Normal posterior fossa. Normal vascular flow voids at the skull base. No extra- axial fluid collections. No evidence of mass or mass effect. Mucosal thickening in the ethmoid air cells. Mastoid air cells are well aerated. Normal posterior nasopharynx. No hemosiderin on the susceptibly weighted images. Normal optic chiasm and pituitary infundibulum. Moderate symmetric atrophy temporal lobes and hippocampal formations. This is progressed since 2010. MR/MR head wo con* [id number] IMPRESSION: 1. No evidence of restricted diffusion to suggest acute ischemia. 2. Significantly progressed small vessel changes with mild parenchymal volume loss. 3. No hemosiderin on susceptibility-weighted images. 4. Progressed moderate symmetric atrophy temporal lobes hippocampal formations . 5. Prior postoperative changes RIGHT frontal craniotomy. 6. No other acute findings.
== END 2025-07-24 10:48 | disposition home or self-care (01) ==
LOC: RAD 10:48
PROVIDERS: PCP Nurse Practitioner Family; Visit Provider Nurse Practitioner Family
DX: I67.82 Cerebral ischemia (principal); Z98.890 Other specified postprocedural states; G31.9 Degenerative disease of nervous system, unspecified; J34.89 Other specified disorders of nose and nasal sinuses
CPT/HCPCS: 70551

== ENCOUNTER 2025-08-05 10:43 | Outpatient (CLI) | payer MEDICARE, MEDICAID, SELFPAY ==
[2025-08-05 12:37] LABS: Alanine Aminotransferase 21 U/L (0-33); Albumin Level 4.1 g/dL (3.5-5.2); Alkaline Phosphatase 99 U/L (35-105); Aspartate Amino Transferase 20 U/L (0-32); Globulin 3.0 g/dL (1.3-4.6); Total Protein 7.1 g/dL (6.6-8.7)
== END 2025-08-05 10:44 | disposition home or self-care (01) ==
PROVIDERS: PCP Nurse Practitioner Family; Visit Provider Internal Medicine Rheumatology
DX: R74.8 Abnormal levels of other serum enzymes (principal)
CPT/HCPCS: 36415; 80076

== ENCOUNTER → 2025-08-19 12:42 | Outpatient (BNVA) | payer MEDICARE, MEDICAID, SELFPAY | PROVIDERS: PCP Nurse Practitioner Family; Visit Provider Nurse Practitioner Family | DX: R25.2 Cramp and spasm (principal) | CPT/HCPCS: 80053; 83735; 85025 ==

== ENCOUNTER 2025-08-29 14:54 | Outpatient (CLI) | payer MEDICARE, MEDICAID, SELFPAY ==
--- NOTE | 2025-08-29 15:00 | US_ITS ---
WS: [id number] ULTRASOUND SOFT TISSUE INDICATION: Abdominal lumps after fall TECHNIQUE: Ultrasound soft tissue FINDINGS: Ultrasound soft tissue area of concern Normal underlying subcutaneous soft tissues. No suspicious cystic or solid lesions. No fluid collections. No suspicious findings noted in the areas of concern. US/US soft tissue/extremity [id number] IMPRESSION: No suspicious findings noted in the areas of concern.
== END 2025-08-29 14:55 | disposition home or self-care (01) ==
LOC: RAD 14:55
PROVIDERS: PCP Nurse Practitioner Family; Visit Provider Nurse Practitioner Family
DX: R10.9 Unspecified abdominal pain (principal); S30.11XA Contusion of abdominal wall, initial encounter; W19.XXXA Unspecified fall, initial encounter
CPT/HCPCS: 76882

== ENCOUNTER 2025-09-18 16:06 | Outpatient (RCR) | payer MEDICARE, MEDICAID, SELFPAY | END 2025-09-19 23:59 | disposition home or self-care (01) | LOC: TPT 16:06 | PROVIDERS: PCP Nurse Practitioner Family; Visit Provider Nurse Practitioner Family | DX: R26.81 Unsteadiness on feet (principal) | CPT/HCPCS: 97110; 97116; 97161; 97164 ==

== ENCOUNTER → 2025-10-21 13:26 | Outpatient (BNVA) | payer MEDICARE, MEDICAID, SELFPAY | PROVIDERS: PCP Nurse Practitioner Family; Visit Provider Nurse Practitioner Family | DX: M79.10 Myalgia, unspecified site (principal); E78.5 Hyperlipidemia, unspecified; E03.9 Hypothyroidism, unspecified; E55.9 Vitamin D deficiency, unspecified; R53.82 Chronic fatigue, unspecified | CPT/HCPCS: 80053; 80061; 82306; 82607; 83735; 84443; 85025 ==

== ENCOUNTER → 2025-10-28 13:12 | Outpatient (BNVA) | payer MEDICARE, MEDICAID, SELFPAY | PROVIDERS: PCP Nurse Practitioner Family; Visit Provider Internal Medicine Rheumatology | DX: M06.041 Rheumatoid arthritis without rheumatoid factor, right hand (principal); M06.042 Rheumatoid arthritis without rheumatoid factor, left hand; Z71.85 Encounter for immunization safety counseling; M79.7 Fibromyalgia; Z79.899 Other long term (current) drug therapy; J44.9 Chronic obstructive pulmonary disease, unspecified; N18.9 Chronic kidney disease, unspecified | CPT/HCPCS: 99214 ==

== ENCOUNTER → 2025-11-04 10:25 | Outpatient (BNVA) | payer MEDICARE, MEDICAID, SELFPAY | PROVIDERS: PCP Nurse Practitioner Family; Visit Provider Nurse Practitioner Family | DX: I10 Essential (primary) hypertension (principal) | CPT/HCPCS: 85025 ==

== ENCOUNTER 2025-11-14 13:24 | Outpatient (CLI) | payer MEDICARE, MEDICAID, SELFPAY ==
--- NOTE | 2025-11-14 14:00 | XR_ITS ---
WS: [id number] DEXA (DUAL ENERGY X-RAY ABSORPTIOMETRY) Bone mineral density was performed using a [employer] machine. HISTORY: Z78.0 - Asymptomatic menopausal state COMPARISON: 01/25/2021 Lumbar spine BMD (L1-L4): 1.379 g/cm2 T score: 1.7 Z score: 2.7 Total hip BMD: Left: 0.900 g/cm2. T score: -0.9 Z score: 0.1 Right: 0.860 g/cm2. T score: -1.2 Z score: -0.2 10 year probability of a major osteoporotic fracture is 11.1%. Compared to the prior study from 01/25/2021. Lumbar spine bone mineral density has increased by 15.5%. Bilateral hips bone mineral density has decreased by 0.1%. XR/XR DEXA axial skeleton* [id number] IMPRESSION: OSTEOPENIA based upon the WHO classification for females. Significant increase in bone mineral density of the lumbar spine since the prio r study. No change in bone mineral density within the hips since the prior stud y.
== END 2025-11-14 13:25 | disposition home or self-care (01) ==
LOC: RAD 13:25
PROVIDERS: PCP Nurse Practitioner Family; Visit Provider Nurse Practitioner Family
DX: Z13.820 Encounter for screening for osteoporosis (principal); Z78.0 Asymptomatic menopausal state; M85.88 Other specified disorders of bone density and structure, other site
CPT/HCPCS: 77080